=== PATIENT | male | born 1940 | race Caucasian/White ===

== ENCOUNTER 2016-12-17 11:00 | Inpatient (IN) | payer MEDICARE ==
[2016-12-17 12:38] VITALS: BMI 27.2
[2016-12-28] MEDS ORDERED: Tranexamic Acid 1,000 MG/100 ML BAG ONE ×2 (07:09→12:27)
[2016-12-28] MEDS ORDERED: CEFAZOLIN/Water 2 GM/20 ML SYRINGE ONE (07:09)
[2016-12-28] MEDS ORDERED: Vancomycin HCl 1.5 GM, Admixture Fee 1 EACH in Sodium Chloride 0.9% 250 ML 300 ML IVPB SCH (07:15)
[2016-12-28] MEDS ORDERED: Bupivacaine 0.25% HCL 30 ML VIAL ONE (08:44)
[2016-12-28] MEDS ORDERED: Phenylephrine 10 MG/NS 250 ML 250 ML ONE (08:44)
[2016-12-28] MEDS ORDERED: Bupivacaine 0.25% 10 ML VIAL EPIDURAL PRN (08:45)
[2016-12-28] MEDS ORDERED: Zolpidem Tartrate 5 MG TAB PO PRN ×2 (08:45→08:51)
[2016-12-28] MEDS ORDERED: diphenhydrAMINE 50 MG/ML VIAL IM PRN (08:45)
[2016-12-28] MEDS ORDERED: Naloxone HCl 0.4 mg/ml Vial IV PRN (08:45)
[2016-12-28] MEDS ORDERED: Promethazine HCl 25 MG/ML VIAL IM PRN ×3 (08:45→11:46)
[2016-12-28] MEDS ORDERED: Naloxone HCl 0.4 mg/ml Vial IVP PRN (08:45)
[2016-12-28] MEDS ORDERED: Ketorolac Tromethamine 30 MG/ML VIAL IVP PRN (08:45)
[2016-12-28] MEDS ORDERED: Promethazine HCl 25 MG SUPP PR PRN (08:45)
[2016-12-28] MEDS ORDERED: Eucerin (Mineral Oil/Petrolatum,White) 30 gm Jar TOP PRN (08:45)
[2016-12-28] MEDS ORDERED: Ondansetron HCl/PF 4 MG/2 ML Vial IVP PRN ×3 (08:45→11:46)
[2016-12-28] MEDS ORDERED: traMADol HCl 50 MG TAB PO PRN ×3 (08:45→08:51)
[2016-12-28] MEDS ORDERED: diphenhydrAMINE 50 MG/ML VIAL IVP PRN (08:45)
[2016-12-28] MEDS ORDERED: Fentanyl/Bupivacaine 250 ML in Premix Bag 1 BAG EPIDURAL SCH (08:45)
[2016-12-28] MEDS ORDERED: HYDROcodone/Acetaminophen 5/325 mg Tablet PO PRN (08:45)
[2016-12-28] MEDS ORDERED: Acetaminophen 325 MG TAB PO PRN (08:51)
[2016-12-28] MEDS ORDERED: Fentanyl 100 MCG/2 ML VIAL SLOW IVP PRN ×2 (08:51)
[2016-12-28] MEDS ORDERED: diphenhydrAMINE 25 MG CAP PO PRN (08:51)
[2016-12-28] MEDS ORDERED: HYDROcodone/Acetaminophen 10/325 mg Tablet PO PRN ×2 (08:51)
[2016-12-28] MEDS ORDERED: Fentanyl 100 MCG/2 ML VIAL ONE (08:52)
[2016-12-28] MEDS ORDERED: Tranexamic Acid 1,000 MG in Sodium Chloride 0.9% 100 ML IVPB SCH (09:00)
[2016-12-28] MEDS ORDERED: Non-Formulary Item 1 EACH (Multivitamin [Multivitamins] 1 CAP) PO SCH (09:00)
[2016-12-28] MEDS ORDERED: PHENYLEPHRINE-NS 100 MCG/ML 10 ML SYRINGE ONE (09:08)
[2016-12-28] MEDS ORDERED: Propofol 200 MG/20 ML VIAL ONE (09:08)
[2016-12-28] MEDS ORDERED: Glycopyrrolate 0.2 MG/ML 5 ML SYRINGE ONE (09:08)
[2016-12-28] MEDS ORDERED: Ondansetron HCl/PF 4 MG/2 ML Vial ONE (09:08)
[2016-12-28] MEDS ORDERED: SUGAMMADEX SODIUM 500 MG/5 ML VIAL ONE (11:37)
[2016-12-28] MEDS ORDERED: Ropivacaine 0.5% HCl/PF (150 MG/30 ML VIAL) ONE (11:43)
[2016-12-28] MEDS ORDERED: Promethazine HCl 25 MG/ML VIAL SLOW IVP PRN (11:46)
[2016-12-28] MEDS ORDERED: Fentanyl/Bupivacaine 250 ML EPIDURAL ONE (12:25)
--- NOTE | 2016-12-28 13:00 | OP ---
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 POSTOPERATIVE DIAGNOSIS: Failed right total hip arthroplasty. SURGEON: Evangelista Malin M.D. BLADE OPERATOR: Spike Bruce M.D. BLOOD LOSS: 400 mL. SPECIMEN: None. DRAINS: None. COMPLICATIONS: None. IMPLANTS USED: A 68 mm G7 multi-hole cup from [employer], 6.5 x 20 mm screw, 6.5 x 25 mm screw x2, dual mobility liner size I, 2 mobility femoral head, size 54 mm femoral trunnion, a standard 28 mm +6 ce ramic femoral head. The patient was taken to the operating room where general anesthesia was induce d. The patient was placed in left decubitus position. Right leg was prepped and draped in the usua l sterile fashion. I opened up a portion of his old scar. Dissection carried down to the IT band, which was quite adherent. I freed up the IT band. Most of his abductors were off and chronically s carred. I removed the scar from this area, exposed the femoral head and neck. The femoral head was dislocated. I extracted the femoral neck and extracted the femoral trunnion. Circumferentially ex posure was made of the acetabulum. The polyethylene liner was removed. The cup was removed with so me difficulty. I had to get four screws which were placed and I removed these. He had a Terri ty pe cup which had an external flanges like basically knife blades that went down to the bone which pr evented easy extraction, so a painstaking distraction was performed. This left the acetabulum with a large defect. This was a 62/64 mm cup which was removed. There was significant bone loss mediall y and posterior superiorly. I gently reamed up to a size 65 and then used an allograft femoral head to bone graft the acetabulum a 68 mm cup was impacted into place and fixed with screws. Trial line r was used, but eventually replaced with a permanent liner. Attention was turned back to the femur where I used extrusor trials and on the femoral side I used a 6 mm +6 mm 28 mm ceramic head with a s leeve. Hip appeared to be stable throughout a range of motion. Trials were removed and irrigation performed. Permanent implants were impacted into place. The hip was reduced. I replaced what abdu ctors were there, but the abductors were in very poor condition, IT band was repaired with #2 Vicryl and #2 Quill, subcutaneous closed with 0 Quill, skin was closed with 2-0 Monoderm and skin glue was applied and sterile dressings applied. There were no complications.
[2016-12-28] MEDS ORDERED: hydrALAZINE 20 MG/ML VIAL SLOW IVP PRN (14:09)
[2016-12-28] MEDS ORDERED: hydrALAZINE 25 MG TAB PO PRN (14:10)
[2016-12-28] MEDS: Aspirin 325 MG TAB PO SCH ×2 (14:20→20:23)
[2016-12-28] MEDS: Sodium Chloride 0.9% 1,000 ML IV SCH ×3 (14:20→23:32)
[2016-12-28] MEDS: Amlodipine 5 MG TAB PO SCH (14:20)
--- NOTE | 2016-12-28 14:44 | RAD ---
RIGHT HIP 2 VIEWS: Date: 12/28/16 HISTORY: Postop total hip. COMPARISON: Hip radiograph dated 11/11/16. FINDINGS: Satisfactory alignment of the right hip arthroplasty. No dislocation. Expected postoperative gas and edema. IMPRESSION: Satisfactory alignment of right hip arthroplasty. POS: [facility]
--- NOTE | 2016-12-28 15:13 | CON ---
DATE OF CONSULTATION: 12/28/2016 ATTENDING PHYSICIAN: Dr. Malin. PRIMARY CARE PHYSICIAN: Dr. Ribeiro. REASON FOR ADMISSION: Revision of a right total hip replacement. REASON FOR CONSULTATION: Aid in medical management. HISTORY OF PRESENT ILLNESS: Mr. Chilel is a pleasant 76-year-old gentleman who was admitted for rev ision of a right total hip replacement. The patient besides having some difficulty with the right h ip has no other specific complaints. He also has a history of coronary artery disease, which has be en stable. It is noted in his records that he sees Dr. Douglas on a regular basis and had a cardiac catheterization back in 06/2015. At that time, it was demonstrated that he had a 3-vessel coronary artery disease, which was well vascularized with the patent internal mammary to the LAD as well as t he patent graft to the obtuse marginal and the RCA has a stent, which was widely patent. The patien t had been on Plavix, but was taken off back in June and continues with aspirin therapy to this date. He denies having any chest pain or shortness of breath, no PND, no orthopnea. When I am seeing kaz parekh, he is postop and has no complaints. REVIEW OF SYSTEMS: With regards to the review of systems; Constitutional: There have been no fever s, no chills, no night sweats, no weight loss. HEENT: No headache or dizziness, no visual changes. Pulmonary: No hemoptysis, no cough, no wheezing. Cardiovascular: As the history of present illn ess. Gastrointestinal: He denies any nausea or vomiting. Extremities: No lower extremity edema. PAST MEDICAL HISTORY: Significant for coronary artery disease and elevated cholesterol. PAST SURGICAL HISTORY: He has had a total hip replacement in 1972, as well as a right hip revision in 1989 as well as 09/2000 he has had what appears to be a 2-vessel bypass surgery as well as a sten t placed to his RCA. FAMILY HISTORY: Unknown. SOCIAL HISTORY: He is . He is a non-smoker, nondrinker. ALLERGIES: MORPHINE. CURRENT MEDICATIONS: Include aspirin 81 mg daily, Cozaar 100 mg daily, simvastatin 40 mg daily, aml odipine 5 mg daily, multivitamin daily, selenium 200 mg daily and calcium carbonate plus vitamin D 6 00 one tablet daily. PHYSICAL EXAMINATION: GENERAL: He is alert and oriented. He appears to be in no acute distress. VITAL SIGNS: His blood pressure was 113/58, heart rate 58, respiratory rate of 18 and temperature i s 98.1. HEENT: His pupils are equal, round and reactive. Extraocular muscles are intact. His sclerae are anicteric. Throat: There is no erythema, no exudates. NECK: No adenopathy, no bruits. LUNGS: Clear. No wheezing, no rales. CARDIOVASCULAR: He has a normal S1 and S2. I did not appreciate an S3 or S4. No murmurs, no click s, no rubs. ABDOMEN: Obese. It is soft, it is nontender and nondistended. Positive for bowel sounds. No rebo und or guarding. EXTREMITIES: There is no edema. NEUROLOGIC: The exam is nonfocal. LABORATORY DATA: Lab results were done on 12/17 and these have been reviewed. ASSESSMENT AND PLAN: This is a pleasant 76-year-old gentleman who is being admitted for revision of a right total hip replacement. The patient is postop and currently clinically stable overall. His blood pressure is well controlled and he is not having any symptoms of angina. His medications had been reviewed and it seems reasonable to restart his usual home medications. His blood pressure is on the lower side. However, we will place a p.r.n. hydralazine as needed. Otherwise, we will be h appy to follow along with you.
[2016-12-28] MEDS: CEFAZOLIN/Water 2 GM/20 ML SYRINGE SLOW IVP SCH ×2 (17:44→23:24)
[2016-12-28] MEDS: Atorvastatin Calcium 20 MG TAB PO SCH (20:23)
[2016-12-29 04:30] LABS: Hematocrit 32.2 % (42.0-52.0); Mean Platelet Volume 7.7 fL (7.4-10.4); Red Blood Cell (RBC) Count 3.18 mill/uL (4.70-6.10); White Blood Cell (WBC) Count 10.6 thou/uL (4.8-10.8)
[2016-12-29] MEDS ORDERED: SELENIUM 200 MCG PO SCH (09:00)
[2016-12-29] MEDS: Calcium Carbonate + Vit D 1 TAB PO SCH (09:36)
[2016-12-29] MEDS: Aspirin 325 MG TAB PO SCH ×2 (09:36→20:27)
[2016-12-29] MEDS: Senokot S 8.6-50 MG TAB PO SCH ×2 (09:37→20:27)
[2016-12-29] MEDS: Ferrous Gluconate 324 MG TAB PO SCH ×2 (09:37→20:27)
[2016-12-29] MEDS: Amlodipine 5 MG TAB PO SCH (09:37)
[2016-12-29] MEDS: Losartan Potassium 25 MG TAB PO SCH (09:37)
[2016-12-29] MEDS: Multivitamin W/ Minerals 1 TAB PO SCH (09:37)
[2016-12-29] MEDS: Sodium Chloride 0.9% 1,000 ML IV SCH ×2 (09:40→22:43)
[2016-12-29] MEDS: HYDROcodone/Acetaminophen 5/325 mg Tablet PO PRN (09:42)
[2016-12-29] MEDS: diphenhydrAMINE 25 MG CAP PO PRN ×2 (15:04→23:08)
[2016-12-29] MEDS: Atorvastatin Calcium 20 MG TAB PO SCH (20:27)
[2016-12-30 04:47] LABS: Hematocrit 31.3 % (42.0-52.0); Mean Platelet Volume 7.4 fL (7.4-10.4); Red Blood Cell (RBC) Count 3.06 mill/uL (4.70-6.10); White Blood Cell (WBC) Count 12.6 thou/uL (4.8-10.8)
[2016-12-30] MEDS: Losartan Potassium 25 MG TAB PO SCH (08:16)
[2016-12-30] MEDS: Calcium Carbonate + Vit D 1 TAB PO SCH (08:17)
[2016-12-30] MEDS: Ferrous Gluconate 324 MG TAB PO SCH (08:17)
[2016-12-30] MEDS: Amlodipine 5 MG TAB PO SCH (08:17)
[2016-12-30] MEDS: Multivitamin W/ Minerals 1 TAB PO SCH (08:17)
[2016-12-30] MEDS: Aspirin 325 MG TAB PO SCH (08:17)
[2016-12-30] MEDS: Senokot S 8.6-50 MG TAB PO SCH (08:18)
[2016-12-30] MEDS: Sodium Chloride 0.9% 1,000 ML IV SCH (08:20)
[2016-12-30] MEDS: HYDROcodone/Acetaminophen 5/325 mg Tablet PO PRN (08:20)
[2016-12-30 13:07] VITALS: BP 137/63; TEMP 97.9
== END 2016-12-30 16:07 | disposition home or self-care (01) | DRG 468 ==
LOC: SURG A 12-28 05:41 → SJJU 12-28 12:51
PROVIDERS: ADMIT Orthopaedic Surgery; ATTEND Orthopaedic Surgery
PROC: 0SRR03A Replacement of Right Hip Joint, Femoral Surface with Ceramic Synthetic Substitute, Uncemented, Open Approach (ICD-10-PCS; principal; 2016-12-28)
PROC: 0SP909Z Removal of Liner from Right Hip Joint, Open Approach (ICD-10-PCS; 2016-12-28)
PROC: 0SUA09Z Supplement Right Hip Joint, Acetabular Surface with Liner, Open Approach (ICD-10-PCS; 2016-12-28)
PROC: 0SPR0JZ Removal of Synthetic Substitute from Right Hip Joint, Femoral Surface, Open Approach (ICD-10-PCS; 2016-12-28)
PROC: 3E0T3BZ Introduction of Anesthetic Agent into Peripheral Nerves and Plexi, Percutaneous Approach (ICD-10-PCS; 2016-12-28)
DX: T84.028A Dislocation of other internal joint prosthesis, initial encounter (principal); I25.2 Old myocardial infarction; T84.020A Dislocation of internal right hip prosthesis, initial encounter; I25.10 Atherosclerotic heart disease of native coronary artery without angina pectoris; Z95.1 Presence of aortocoronary bypass graft; Z95.5 Presence of coronary angioplasty implant and graft; E78.00 Pure hypercholesterolemia, unspecified; Z79.02 Long term (current) use of antithrombotics/antiplatelets; Z79.82 Long term (current) use of aspirin; Z88.8 Allergy status to other drugs, medicaments and biological substances
CPT/HCPCS: 36415; 85027; A4216; C1776; G8987-GO-CJ; G8988-GO-CI; J1200; J2405; J2704; J2795; J3010; J3370; J7050; S0020

== ENCOUNTER 2016-12-17 12:01 | Outpatient (CLI) | payer MEDICARE ==
[2016-12-17 14:18] LABS: #Eosinphils 0.1 thou/uL (0.0-0.7); #Lymphocytes 1.5 thou/uL (1.20-3.40); #Monocytes 0.5 thou/uL (0.11-0.59); #Neutrophils 4.1 thou/uL (1.40-6.50); %Basophils 0.8 % (0.0-1.0); %Lymphocytes 24.3 % (21.0-51.0); %Monocytes 7.9 % (0.0-10.0); Mean Platelet Volume 7.3 fL (7.4-10.4); Red Blood Cell (RBC) Count 4.02 mill/uL (4.70-6.10); White Blood Cell (WBC) Count 6.1 thou/uL (4.8-10.8)
[2016-12-17 14:22] LABS: Bilirubin Negative (Negative); Blood, Urine Negative (Negative); Glucose, Urine (Dipstick) Negative (Negative); Ketone, Urine Negative (Negative); Nitrite Negative (Negative); Protein, Urine (Dipstick) Negative (Neg-Trace)
[2016-12-17 14:24] LABS: PTT 28.2 SEC (22.9-36.1); Prothrombin Time 13.8 SEC (12.0-14.7)
[2016-12-17 14:27] LABS: Bacteria/HPF None Seen HPF (None Seen); Hyaline Casts/LPF 0-3 HYALINE CAST LPF (0-3 Hyaline); Squamous Epithelial 0-3 HPF (0-3); WBC/HPF 0-3 HPF (0-3)
[2016-12-17 14:52] LABS: Anion Gap 10 mmol/L (10-20); BUN (Urea Nitrogen) 18 mg/dL (8.4-25.7); Calc. Creatinine Clearance 0 mL/min (70-130); Carbon Dioxide 31 mmol/L (23-31); Chloride 104 mmol/L (98-107); Estimated GFR-MDRD 71
--- NOTE | 2016-12-17 15:33 | RAD ---
PA AND LATERAL VIEWS OF CHEST: Date: 12/17/16 HISTORY: Preoperative evaluation. FINDINGS: There are changes of median sternotomy. The heart size is normal. The lungs are well expanded withou t focal areas of consolidation, pneumothorax, or pleural effusions. There are mild degenerative pascal ges in the spine. IMPRESSION: No radiographic evidence of acute cardiopulmonary process. POS: [facility]
--- NOTE | 2016-12-20 16:04 | EKG ---
Test Reason : Blood Pressure : / mmHG Vent. 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
== END 2016-12-17 12:02 | disposition home or self-care (01) ==
LOC: LABBT 12:01
PROVIDERS: ATTEND Orthopaedic Surgery
DX: Z01.818 Encounter for other preprocedural examination (principal)
CPT/HCPCS: 71020; 80048; 81001; 85025; 85610; 85730; 93005; 93010

== ENCOUNTER 2016-12-22 09:44 | Outpatient (CLI) | payer MEDICARE | END 2016-12-22 09:45 | disposition home or self-care (01) | LOC: LABBT 09:44 | PROVIDERS: ATTEND Orthopaedic Surgery | DX: Z01.818 Encounter for other preprocedural examination (principal); T84.028A Dislocation of other internal joint prosthesis, initial encounter | CPT/HCPCS: 86850; 86900; 86901; 87081 ==

== ENCOUNTER 2018-03-01 09:47 | Outpatient (CLI) | payer MEDICARE ==
--- NOTE | 2018-03-01 12:23 | RAD ---
CERVICAL SPINE FOUR VIEWS: 03/01/2018 HISTORY: Cervical radiculopathy. FINDINGS: Mild degenerative change at the atlantoaxial interspace. Disk space narrowing, degenerative endplate change, and anterior osteophyte formation noted at C4-C5, C5-C6, and C6-C7. Selection imaging, neut ral imaging, and extension imaging demonstrates no significant anterolisthesis or retrolisthesis. Fr ontal imaging demonstrates bilateral facet and uncovertebral osteophyte formation at C4-C5, C5-C6, an d C6-C7. IMPRESSION: Multilevel degenerative change within the cervical spine, as detailed above. POS: [facility]
--- NOTE | 2018-03-01 13:47 | MRI ---
MRI CERVICAL SPINE: Date: 03-01-18 Comparison: None. History: Neck pain radiating into the left scapular region, cervical radiculopathy. Technique: Multiplanar, multisequence MRI images were obtained of the cervical spine without contrast . FINDINGS: The sagittal STIR imaging demonstrates no focal area of osseous marrow edema. Cervical vertebral body height and alignment appears within normal limits. No prevertebral soft tissu e abnormality. There is moderate degenerative changes at the atlantoaxial interspace. C2-3: Mild disc bulge with no central canal or neural foraminal stenosis. C3-4: Mild disc bulge with no significant central canal stenosis. Bilateral facet and uncal vertebral osteophyte formation, left greater than right. Mild bilateral neural foraminal stenosis. C4-5: There is disc space narrowing, disc desiccation and disc bulge with partial effacement of the v entral thecal sac and mild central canal stenosis. Anterior osteophyte formation noted. Bilateral facet and uncal vertebral osteophyte formation, left greater than right. Mild bilateral elicia ral foraminal stenosis, left greater than right. C5-6: Disc space narrowing and disc desiccation noted with mild disc bulge and mild central canal kiera nosis. Mild bilateral facet hypertrophy. No significant neural foraminal stenosis. C6-7: Disc space narrowing, disc desiccation, and mild disc bulge. No significant central canal steno sis. Anterior osteophyte formation is present. Mild bilateral facet and uncal vertebral osteophyte formation noted with mild bilateral neural forami nal stenosis, right greater than left. C7-T1: Mild bilateral facet hypertrophy with mild bilateral neural foraminal stenosis, left greater t escobar right. No significant central canal stenosis. There is no focal area of abnormal signal intensity within the cervical cord. IMPRESSION: 1. Multilevel degenerative change within the cervical spine as detailed above. POS: [facility]
== END 2018-03-01 09:48 | disposition home or self-care (01) ==
LOC: BICMRI 09:47
PROVIDERS: ATTEND Surgery
DX: M47.22 Other spondylosis with radiculopathy, cervical region (principal)
CPT/HCPCS: 72050; 72141

== ENCOUNTER 2020-02-21 10:17 | Inpatient (IN) | payer MEDICARE ==
[2020-02-21] MEDS ORDERED: Acetaminophen 500 MG TAB ONE (10:56)
[2020-02-21] MEDS ORDERED: cefTRIAXone\\ROCEPHIN 1 GM VIAL ONE (10:56)
--- NOTE | 2020-02-21 11:20 | RAD ---
Exam: Chest one view HISTORY:COVID positive patient. Shortness of breath. Difficulty breathing. Comparison: 09/11/2004 FINDINGS: Cardiac silhouette:Cardiomegaly and sternotomy wires are noted. Aorta: Atherosclerosis Pulmonary vessels: Normal Costophrenic angles: Scarring of the left lung base. LUNGS: Multi lobar interstitial and alveolar opacities compatible with patient's history of COVID 19 pneumonia. Pneumothorax: None Osseous abnormalities: None IMPRESSION: Multi lobar COVID pneumonia.
[2020-02-21 11:39] LABS: #Lymphocytes 0.8 thou/uL (1.20-3.40); #Monocytes 0.4 thou/uL (0.11-0.59); #Neutrophils 7.9 thou/uL (1.40-6.50); %Basophils 0.1 % (0.0-1.0); %Eosinophils 0.2 % (0.0-10.0); %Lymphocytes 8.8 % (21.0-51.0); %Monocytes 4.5 % (0.0-10.0); %Neutrophils 86.5 % (42.0-75.0); Hemoglobin 13.5 g/dL (14.0-18.0); Mean Corpuscular HGB CONC 32.8 g/dL (32.0-36.0); Mean Corpuscular Hemoglobin 33.1 pg (27.0-31.0); Mean Platelet Volume 8.6 fL (7.4-10.4); Platelet Count 101 thou/uL (130-400); Platelet Morphology Comment Appears Decreased; RBC Distribution Width 11.7 % (11.5-14.5); Red Blood Cell (RBC) Count 4.07 mill/uL (4.70-6.10); White Blood Cell (WBC) Count 9.1 thou/uL (4.8-10.8)
[2020-02-21] MEDS ORDERED: Azithromycin 500 MG VIAL ONE (11:59)
[2020-02-21 12:03] LABS: CKMB 0.5 ng/mL (0-6.6)
[2020-02-21 12:05] LABS: ALT (SGPT) 32 U/L (8-55); AST (SGOT) 45 U/L (5-34); Albumin 3.3 g/dL (3.4-4.8); Alkaline Phosphatase 87 U/L (40-110); Anion Gap 16 mmol/L (10-20); BUN (Urea Nitrogen) 23 mg/dL (8.4-25.7); Bilirubin, Total 0.8 mg/dL (0.2-1.2); Calc. Creatinine Clearance 0 mL/min (70-130); Calcium 7.9 mg/dL (7.8-10.44); Carbon Dioxide 24 mmol/L (23-31); Chloride 104 mmol/L (98-107); Globulin 3.5 g/dL (2.4-3.5); Glucose 88 mg/dL (83-110); Potassium 3.4 mmol/L (3.5-5.1); Protein, Total 6.8 g/dL (5.8-8.1); Sodium 141 mmol/L (136-145)
[2020-02-21] MEDS ORDERED: Aspirin Chewable 81 MG TAB ONE (12:17)
[2020-02-21] MEDS ORDERED: Dexamethasone 4 mg/ml Vial ONE (12:17)
[2020-02-21] MEDS ORDERED: Albuterol 200 PUFF (6.7GM INHALER) ONE (12:23)
[2020-02-21] MEDS ORDERED: Iopamidol-370 76% 500 ML 1 ML ONE (13:11)
--- NOTE | 2020-02-21 13:22 | CT ---
Exam: CT angiogram of the chest HISTORY: COVID positive patient. Increasing shortness of breath and difficulty breathing. COMPARISON: None TECHNIQUE: CT angiogram of the chest is performed in the axial plane. Three-dimensional reformatted i mages are submitted for interpretation FINDINGS: Mediastinum: No mass, lymphadenopathy or hematoma. HEART: Normal size. No significant pericardial fluid. There are coronary artery calcifications. Aorta: No aneurysm or dissection Upper solid abdominal viscera: No acute abnormality. There is evidence of cholelithiasis. Trachea and central bronchi: Patent Pleural spaces: No effusion Lung parenchyma: Peripheral groundglass opacities, in keeping with patient's COVID positive status. Pneumothorax: None Osseous structures: No lytic or blastic lesions Pulmonary arteries: Adequate contrast opacification pulmonary arterial system to the level of segment al arteries. No filling defect to suggest pulmonary embolism IMPRESSION: 1. No evidence of pulmonary artery embolism to the level of the segmental arteries. 2. Multi lobar groundglass opacities, peripheral distribution. There is evidence for multi lobar COVI D pneumonia.
[2020-02-21 14:50] LABS: Lactic Acid 1.4 mmol/L (0.5-2.2)
[2020-02-21 15:49] LABS: Troponin I 0.044 ng/mL (< 0.028)
[2020-02-21 16:56] LABS: Bilirubin Negative (Negative); Blood, Urine Negative (Negative); Clarity Clear (Clear); Glucose, Urine (Dipstick) Normal (Negative); Ketone, Urine Negative (Negative); Leukocyte Negative Leu/uL (Negative); Nitrite Negative (Negative); Protein, Urine (Dipstick) Negative (Neg-Trace); Specific Gravity, Urine 1.027 (1.002-1.036); Urobilinogen Normal mg/dL (Less than 2)
--- NOTE | 2020-02-21 17:57 | HP ---
CHIEF COMPLAINT: Shortness of breath. HISTORY OF PRESENT ILLNESS: The patient is a 80-year-old male with past medical history of coronary artery disease, status post CABG; hyperlipidemia; hypertension; and chronic kidney disease; who presented to the hospital with complaints of shortness of breath. The patient was diagnosed with COVID-19 fourteen days ago. He stated that shortness of breath has been worsening over the past few days and associated with cough and chest pain whenever he takes a deep breath. The pain is sharp and localized to the lower chest. The patient denies nausea, vomiting, diarrhea, palpitations, or dizziness. REVIEW OF SYSTEMS: Negative except as noted in HPI. PAST MEDICAL HISTORY: As noted above. PAST SURGICAL HISTORY: Include CABG and hip surgery. SOCIAL HISTORY: The patient denies alcohol use, illicit drug use, or smoking. FAMILY HISTORY: Noncontributory for his current presentation. PHYSICAL EXAMINATION: GENERAL: The patient is alert and oriented x3. HEENT: Head is normocephalic and atraumatic. Extraocular muscles are intact. NECK: Supple. CHEST: Auscultation reveals crackles bilaterally. CARDIOVASCULAR: Revealed normal S1 and S2. Regular rate and rhythm. No murmurs, rubs, or gallops. ABDOMEN: Soft, nontender, nondistended. NEUROLOGIC: Nonfocal. PERTINENT DATA: The patient was found to be saturating well on room air in the ER while at rest and his oxygen saturations dropped to 89% with ambulation. Initial troponin was slightly elevated at 0.03 and repeat troponin was 0.04. Creatinine level was above baseline at 1.29. BNP was slightly elevated at 153. Chest x-ray revealed multilobar infiltrates consistent with COVID pneumonia. ASSESSMENT: 1. COVID-19 pneumonia. 2. Atypical chest pain. 3. Troponin elevation. 4. Hypertension. 5. Hyperlipidemia. 6. Chronic kidney disease. 7. Coronary artery disease. PLAN: The patient will be placed in observation. We will trend the troponins. He does not require oxygen at this time. No COVID-19 specific treatment will be administered as the patient is saturating well on room air. Enoxaparin for DVT prophylaxis. Continue aspirin, atorvastatin, and losartan. His chest pain is atypical and troponin elevation is likely due to chronic kidney disease in addition to COVID-19 infection. We will continue to monitor the patient's condition over the next 24 hours. Job ID: [id number]
[2020-02-21 18:20] LABS: Troponin I 0.038 ng/mL (< 0.028)
[2020-02-21] MEDS: Atorvastatin Calcium 40 MG TAB PO SCH (21:29)
[2020-02-21 21:32] VITALS: BMI 28.9
[2020-02-21] MEDS: Albuterol 200 PUFF (6.7GM INHALER) INH SCH (22:16)
[2020-02-22] MEDS: Albuterol 200 PUFF (6.7GM INHALER) INH SCH ×6 (02:27→22:30)
[2020-02-22 05:42] LABS: #Monocytes 0.5 thou/uL (0.11-0.59); #Neutrophils 8.1 thou/uL (1.40-6.50); %Basophils 0.1 % (0.0-1.0); %Eosinophils 0.2 % (0.0-10.0); %Lymphocytes 10.4 % (21.0-51.0); %Monocytes 5.6 % (0.0-10.0); %Neutrophils 83.8 % (42.0-75.0); Hemoglobin 12.2 g/dL (14.0-18.0); Mean Corpuscular HGB CONC 33.9 g/dL (32.0-36.0); Mean Corpuscular Hemoglobin 34.5 pg (27.0-31.0); Mean Platelet Volume 8.7 fL (7.4-10.4); Platelet Count 95 thou/uL (130-400); RBC Distribution Width 11.6 % (11.5-14.5); Red Blood Cell (RBC) Count 3.55 mill/uL (4.70-6.10); White Blood Cell (WBC) Count 9.7 thou/uL (4.8-10.8)
[2020-02-22 06:03] LABS: Anion Gap 13 mmol/L (10-20); BUN (Urea Nitrogen) 21 mg/dL (8.4-25.7); Calc. Creatinine Clearance 88 mL/min (70-130); Calcium 7.4 mg/dL (7.8-10.44); Carbon Dioxide 19 mmol/L (23-31); Chloride 110 mmol/L (98-107); Glucose 147 mg/dL (83-110); Potassium 3.9 mmol/L (3.5-5.1); Sodium 138 mmol/L (136-145)
[2020-02-22] MEDS ORDERED: Amlodipine 5 MG TAB PO SCH (09:00)
[2020-02-22] MEDS: Enoxaparin Sodium 40 MG/0.4 ML SYRINGE SC SCH (09:19)
[2020-02-22] MEDS: Losartan 25 MG TAB PO SCH (09:20)
[2020-02-22] MEDS: Aspirin 81 mg Enteric Coated Tablet PO SCH (09:20)
[2020-02-22] MEDS: hydrALAZINE 20 MG/ML VIAL SLOW IVP PRN (13:39)
--- NOTE | 2020-02-22 14:56 | PDOC.HOSPP ---
- Subjective Encounter Date: 02/22/20 Encounter Time: 11:50 Subjective: Patient seen and examined. No acute complaints at this time. he has some cough and sating 96%. His blood pressure is little elevated this morning. - Objective Vital Signs & Weight: Vital Signs (12 hours) Temp Pulse Resp BP BP Pulse Ox 02/22/20 12:10 98.5 F 73 18 157/74 H 96 02/22/20 10:38 149/69 H 02/22/20 09:20 98.4 F 63 18 162/79 H 96 02/22/20 03:32 97.7 F 61 18 136/66 97 Weight Weight 201 lb 6.4 oz I&O: 02/21/20 02/22/20 02/23/20 06:59 06:59 06:59 Intake Total 480 Balance 480 Result Diagrams: 02/22/20 04:51 02/22/20 04:51 Hospitalist ROS - Medication Medications: Active Medications Generic Name Dose Route Start Last Admin Trade Name Freq PRN Reason Stop Dose Admin Albuterol Sulfate 2 puff 02/21/20 22:30 02/22/20 13:39 Albuterol 200 Puff (6.7gm Inhaler) INH 2 puff [id number] IVA Administration Aspirin 81 mg 02/22/20 09:00 02/22/20 09:20 Aspirin 81 Mg Enteric Coated Tablet PO 81 mg DAILY IVA Administration Atorvastatin Calcium 40 mg 02/21/20 21:00 02/21/20 21:29 Atorvastatin Calcium 40 Mg Tab PO 40 mg HS IVA Administration Enoxaparin Sodium 40 mg 02/22/20 09:00 02/22/20 09:19 Enoxaparin Sodium 40 Mg/0.4 Ml Syringe SC 40 mg 0900 IVA Administration Hydralazine HCl 10 mg 02/22/20 10:02 02/22/20 13:39 Hydralazine 20 Mg/Ml Vial SLOW IVP 10 mg Q4H PRN Administration SBP >150 Losartan Potassium 100 mg 02/22/20 09:00 02/22/20 09:20 Losartan 25 Mg Tab PO 100 mg DAILY IVA Administration - Exam General Appearance: NAD, awake alert Eye: PERRL ENT: normocephalic atraumatic Neck: supple Heart: RRR Respiratory: CTAB, normal chest expansion Gastrointestinal: soft, normal bowel sounds Neurological: cranial nerve grossly intact, no focal deficits Psychiatric: A&O x 3 Hosp A/P - Plan COVID-19 pneumonia Probable noncardiac chest pain likely secondary to pneumonia -CT chest showing negative for pulmonary artery embolism -Multilobar groundglass opacity and peripheral distribution -He is on vitamin D3 Levaquin as well as Lovenox Coronary artery disease -Stable and on -Aspirin and Lipitor Hypertension -Increase the dose of Norvasc and continue with the Cozaar home regimen -Hydralazine as needed Chronic kidney disease plan for discharge tomorrow.
[2020-02-22] MEDS: Acetaminophen 325 MG TAB PO PRN (17:44)
[2020-02-22] MEDS: Atorvastatin Calcium 40 MG TAB PO SCH (20:02)
[2020-02-22] MEDS: Amlodipine 5 MG TAB PO SCH (20:02)
--- NOTE | 2020-02-23 00:17 | PDOC.EVN ---
Event Note - Event Note Event Note: Notified by RN, patient with temp spike of 103.2, UA negative, blood cultures pending and CT chest imaging showed changes consistent with COVID pneumonia. Temp has been normal most of the day. Will continue Tylenol. If fever persists, consider adding IV antibiotics Will obtain repeat BMP and lactic acid.
[2020-02-23] MEDS: Acetaminophen 325 MG TAB PO PRN ×4 (00:21→20:44)
[2020-02-23 01:10] LABS: #Lymphocytes 1.1 thou/uL (1.20-3.40); #Monocytes 0.4 thou/uL (0.11-0.59); #Neutrophils 14.2 thou/uL (1.40-6.50); %Basophils 0.1 % (0.0-1.0); %Eosinophils 0.2 % (0.0-10.0); %Monocytes 2.7 % (0.0-10.0); Mean Corpuscular HGB CONC 34.3 g/dL (32.0-36.0); Mean Corpuscular Hemoglobin 34.2 pg (27.0-31.0); Mean Corpuscular Volume 99.8 fL (78.0-98.0); Mean Platelet Volume 8.7 fL (7.4-10.4); Platelet Count 112 thou/uL (130-400); RBC Distribution Width 11.6 % (11.5-14.5); Red Blood Cell (RBC) Count 3.81 mill/uL (4.70-6.10); White Blood Cell (WBC) Count 15.7 thou/uL (4.8-10.8)
[2020-02-23 01:27] LABS: Lactic Acid 1.2 mmol/L (0.5-2.2)
[2020-02-23 01:31] LABS: Anion Gap 14 mmol/L (10-20); BUN (Urea Nitrogen) 25 mg/dL (8.4-25.7); CRP (Inflammatory) 9.67 mg/dL (= or < 0.5); Calc. Creatinine Clearance 82 mL/min (70-130); Calcium 7.7 mg/dL (7.8-10.44); Carbon Dioxide 22 mmol/L (23-31); Chloride 107 mmol/L (98-107); Glucose 106 mg/dL (83-110); Potassium 3.6 mmol/L (3.5-5.1); Sodium 139 mmol/L (136-145)
[2020-02-23] MEDS: Albuterol 200 PUFF (6.7GM INHALER) INH SCH ×6 (03:40→22:36)
[2020-02-23] MEDS: Enoxaparin Sodium 40 MG/0.4 ML SYRINGE SC SCH (09:02)
[2020-02-23] MEDS: Amlodipine 5 MG TAB PO SCH ×2 (09:02→20:45)
[2020-02-23] MEDS: Aspirin 81 mg Enteric Coated Tablet PO SCH (09:02)
[2020-02-23] MEDS: Losartan 25 MG TAB PO SCH (09:03)
[2020-02-23] MEDS ORDERED: Bisacodyl 10 MG SUPP PR PRN (09:42)
[2020-02-23] MEDS: cefTRIAXone\\ROCEPHIN 1 GM in Sodium Chloride 0.9% 100 ML IVPB SCH (10:25)
--- NOTE | 2020-02-23 11:57 | PDOC.HOSPP ---
- Subjective Encounter Date: 02/23/20 Encounter Time: 10:35 Subjective: Patient seen this morning he appears well he did had temp overnight this morning he is afebrile. sat 94% in room air. Plan to follow-up with repeat culture today given that there is overnight temperature. - Objective Vital Signs & Weight: Vital Signs (12 hours) Temp Pulse Resp BP Pulse Ox 02/23/20 09:09 98.9 F 72 19 150/70 H 95 02/23/20 03:16 99.1 F 95 18 141/67 H 94 L 02/23/20 01:20 100.0 F H 02/23/20 00:00 103.2 F H 98 20 149/71 H 94 L Weight Weight 201 lb 6.4 oz I&O: 02/22/20 02/23/20 02/24/20 06:59 06:59 06:59 Intake Total 480 1260 Output Total 1435 Balance 480 -175 Result Diagrams: 02/23/20 01:00 02/23/20 01:00 Hospitalist ROS - Medication Medications: Active Medications Generic Name Dose Route Start Last Admin Trade Name Freq PRN Reason Stop Dose Admin Acetaminophen 650 mg 02/21/20 17:05 02/23/20 09:09 Acetaminophen 325 Mg Tab PO 650 mg Q4H PRN Administration Headache/Fever/Mild Pain (1-3) Albuterol Sulfate 2 puff 02/21/20 22:30 02/23/20 09:03 Albuterol 200 Puff (6.7gm Inhaler) INH 2 puff [id number] IVA Administration Amlodipine Besylate 5 mg 02/22/20 21:00 02/23/20 09:02 Amlodipine 5 Mg Tab PO 5 mg BID IVA Administration Aspirin 81 mg 02/22/20 09:00 02/23/20 09:02 Aspirin 81 Mg Enteric Coated Tablet PO 81 mg DAILY IVA Administration Atorvastatin Calcium 40 mg 02/21/20 21:00 02/22/20 20:02 Atorvastatin Calcium 40 Mg Tab PO 40 mg HS IVA Administration Bisacodyl 10 mg 02/23/20 09:42 02/23/20 10:24 Bisacodyl 10 Mg Supp MS 10 mg Q8H PRN Administration Constipation Enoxaparin Sodium 40 mg 02/22/20 09:00 02/23/20 09:02 Enoxaparin Sodium 40 Mg/0.4 Ml Syringe SC 40 mg 0900 IVA Administration Hydralazine HCl 10 mg 02/22/20 10:02 02/22/20 13:39 Hydralazine 20 Mg/Ml Vial SLOW IVP 10 mg Q4H PRN Administration SBP >150 Ceftriaxone Sodium 1 gm/ 100 mls @ 200 mls/hr 02/23/20 10:00 02/23/20 10:25 Sodium Chloride IVPB 100 mls Q24HR IVA Administration Losartan Potassium 100 mg 02/22/20 09:00 02/23/20 09:03 Losartan 25 Mg Tab PO 100 mg DAILY IVA Administration - Exam General Appearance: NAD, awake alert Eye: PERRL ENT: normocephalic atraumatic Neck: supple Gastrointestinal: soft, normal bowel sounds Neurological: cranial nerve grossly intact, no focal deficits Psychiatric: normal affect, normal behavior, A&O x 3 Hosp A/P - Plan COVID-19 pneumonia Probable noncardiac chest pain likely secondary to pneumonia -CT chest showing negative for pulmonary artery embolism -Multilobar groundglass opacity and peripheral distribution -He is on vitamin D3 Levaquin as well as Lovenox DC Levaquin Mild hemoptysis -Probably due to cough will monitor closely. His hemoglobin is 13.0 and he is on baby aspirin. Coronary artery disease -Stable and on -Aspirin and Lipitor Hypertension -Increase the dose of Norvasc and continue with the [facility] home regimen -Hydralazine as needed Chronic kidney disease Fever and leukocytosis on -Repeating the blood culture and started him on ceftriaxone and Zithromax. Thrombocytopenia -Not severe enough to stop the anticoagulant -continue with the Lovenox
[2020-02-23] MEDS: hydrALAZINE 20 MG/ML VIAL SLOW IVP PRN (14:37)
[2020-02-23] MEDS: Atorvastatin Calcium 40 MG TAB PO SCH (20:44)
[2020-02-23] MEDS: Senokot S 8.6-50 MG TAB PO SCH (20:44)
[2020-02-24] MEDS: Albuterol 200 PUFF (6.7GM INHALER) INH SCH ×6 (02:38→22:08)
[2020-02-24] MEDS: Acetaminophen 325 MG TAB PO PRN ×5 (02:44→22:13)
[2020-02-24 05:46] LABS: Band 3 % (5-11); Hemoglobin 12.5 g/dL (14.0-18.0); Lymphocytes 8 % (21-51); MDiff Complete? YES; Mean Corpuscular HGB CONC 33.3 g/dL (32.0-36.0); Mean Corpuscular Hemoglobin 33.6 pg (27.0-31.0); Mean Platelet Volume 8.7 fL (7.4-10.4); Monocytes 8 % (0-10); Neutrophil 78 % (42-75); Platelet Count 120 thou/uL (130-400); Platelet Morphology Comment Appears Adequate; RBC Distribution Width 11.7 % (11.5-14.5); RBC Morphology Normal; Reactive Lymphocytes 3 % (0-10); Red Blood Cell (RBC) Count 3.72 mill/uL (4.70-6.10)
--- NOTE | 2020-02-24 08:02 | RAD ---
Chest AP view INDICATION: History of fever and Covid pneumonia COMPARISON: February 21, 2020 FINDINGS: Lungs: There is improvement in the right perihilar airspace disease; however, some interstitial and groundglass opacities remain within this region. Patchy left perihilar opacities persist. Cardiac silhouette: Post-CABG changes stable. Mild cardiomegaly is stable. Pulmonary vasculature: Normal Pleural spaces: No pleural effusion or pneumothorax is demonstrated. Upper abdomen: No abnormality seen. Osseous structures: No acute osseous abnormality. Additional findings: None. IMPRESSION: Improving bilateral pneumonia
[2020-02-24] MEDS: Aspirin 81 mg Enteric Coated Tablet PO SCH (08:52)
[2020-02-24] MEDS: Amlodipine 5 MG TAB PO SCH ×2 (08:52→20:33)
[2020-02-24] MEDS: Losartan 25 MG TAB PO SCH (08:53)
[2020-02-24] MEDS: Enoxaparin Sodium 40 MG/0.4 ML SYRINGE SC SCH (08:53)
[2020-02-24] MEDS: Azithromycin 250 MG TAB PO SCH (08:53)
[2020-02-24] MEDS: Senokot S 8.6-50 MG TAB PO SCH ×2 (08:54→20:46)
[2020-02-24] MEDS: cefTRIAXone\\ROCEPHIN 1 GM in Sodium Chloride 0.9% 100 ML IVPB SCH (10:42)
--- NOTE | 2020-02-24 12:46 | PDOC.HOSPP ---
- Subjective Encounter Date: 02/24/20 Encounter Time: 11:15 Subjective: Patient has ongoing fever. Blood cultures negative so far. His sats were done without oxygen and currently with a 2 L oxygen it is improved to 97%. - Objective Vital Signs & Weight: Vital Signs (12 hours) Temp Pulse Resp BP Pulse Ox 02/24/20 02:42 100.5 F H 83 24 H 144/67 H 97 Weight Weight 201 lb 6.4 oz I&O: 02/23/20 02/24/20 02/25/20 06:59 06:59 06:59 Intake Total 1260 300 Output Total 1435 575 Balance -175 -775 Result Diagrams: 02/24/20 04:47 02/23/20 01:00 Hospitalist ROS - Medication Medications: Active Medications Generic Name Dose Route Start Last Admin Trade Name Freq PRN Reason Stop Dose Admin Acetaminophen 650 mg 02/21/20 17:05 02/24/20 08:54 Acetaminophen 325 Mg Tab PO 650 mg Q4H PRN Administration Headache/Fever/Mild Pain (1-3) Albuterol Sulfate 2 puff 02/21/20 22:30 02/24/20 10:42 Albuterol 200 Puff (6.7gm Inhaler) INH 2 puff [id number] IVA Administration Amlodipine Besylate 5 mg 02/22/20 21:00 02/24/20 08:52 Amlodipine 5 Mg Tab PO 5 mg BID IVA Administration Aspirin 81 mg 02/22/20 09:00 02/24/20 08:52 Aspirin 81 Mg Enteric Coated Tablet PO 81 mg DAILY IVA Administration Atorvastatin Calcium 40 mg 02/21/20 21:00 02/23/20 20:44 Atorvastatin Calcium 40 Mg Tab PO 40 mg HS IVA Administration Azithromycin 500 mg 02/24/20 09:00 02/24/20 08:53 Azithromycin 250 Mg Tab PO 02/27/20 09:01 500 mg DAILY IVA Administration Bisacodyl 10 mg 02/23/20 09:42 02/23/20 10:24 Bisacodyl 10 Mg Supp MS 10 mg Q8H PRN Administration Constipation Enoxaparin Sodium 40 mg 02/22/20 09:00 02/24/20 08:53 Enoxaparin Sodium 40 Mg/0.4 Ml Syringe SC 40 mg 0900 IVA Administration Hydralazine HCl 10 mg 02/22/20 10:02 02/23/20 14:37 Hydralazine 20 Mg/Ml Vial SLOW IVP 10 mg Q4H PRN Administration SBP >150 Ceftriaxone Sodium 1 gm/ 100 mls @ 200 mls/hr 02/23/20 10:00 02/24/20 10:42 Sodium Chloride IVPB 100 mls Q24HR IVA Administration Losartan Potassium 100 mg 02/22/20 09:00 02/24/20 08:53 Losartan 25 Mg Tab PO 100 mg DAILY IVA Administration Senna/Docusate Sodium 2 tab 02/23/20 21:00 02/24/20 08:54 Senokot S 8.6-50 Mg Tab PO Not Given BID IVA Sodium Chloride 10 ml 02/23/20 21:00 02/24/20 08:54 Flush - Normal Saline 10 Ml Syringe IVF 10 ml Q12HR IVA Administration - Exam General Appearance: awake alert, ill appearing Eye: PERRL ENT: normocephalic atraumatic Neck: supple, no thyromegaly, no lymphadenopathy Heart: RRR, no rubs Respiratory: CTAB, normal chest expansion Gastrointestinal: soft, normal bowel sounds Neurological: cranial nerve grossly intact, no focal deficits Psychiatric: normal affect, A&O x 3 Hosp A/P - Plan COVID-19 pneumonia, diagnosed 14 days ago, so he passed will stage for remdesivir. His sats were good initially in the room air -Since it is over 14 days ago, she would not benefit with the Decadron -Continue with vitamin C and zinc Probable noncardiac chest pain likely secondary to pneumonia -CT chest showing negative for pulmonary artery embolism -Multilobar groundglass opacity and peripheral distribution -He is on vitamin D3 Levaquin as well as Lovenox DC Levaquin Mild hemoptysis -Probably due to cough will monitor closely. His hemoglobin is 13.0 and he is on baby aspirin. Coronary artery disease -Stable and on -Aspirin and Lipitor Hypertension -Increase the dose of Norvasc and continue with the Cozaar home regimen -Hydralazine as needed Chronic kidney disease Thrombocytopenia -Not severe enough to stop the anticoagulant -continue with the Lovenox. Persistent fever and leukocytosis -Cultures negative so far -He is on ceftriaxone and Zithromax. -Could be just inflammatory process. As chest x-ray shows improving infiltrate and urine analysis of 24th is negative for any infection. -CT chest done on 24th negative for pulmonary embolism. -Placed ID consult.
[2020-02-24] MEDS ORDERED: Dexamethasone 4 mg/ml Vial SLOW IVP SCH (18:45)
--- NOTE | 2020-02-24 19:57 | CON ---
DATE OF CONSULTATION: 02/24/2020 REASON FOR CONSULTATION: Fever. HISTORY OF PRESENT ILLNESS: A 80-year-old, history of bronchitis, coronary artery disease, prior SD, hyperlipidemia, hypertension, and CKD stage 2 to 3, who developed mild nasal symptoms about 14 days before admission, tested positive for SARS-CoV-2 done in the outpatient setting, but remained in the outpatient setting until recently when he developed fever, worsening chest pain, and dyspnea, associated with cough. He had some hemoptysis and epistaxis as well. So, he ended up admitted. On arrival, his BP was 140/62, heart rate 120, temperature 102.8, and he was saturating 96 on room air. He desaturated later on and required oxygen supplementation, and he has been given broad-spectrum antimicrobial coverage for CAP. He is right now still having temperature elevation intermittently, mild headache, still with coughing spells and some blood-tinged sputum, not purulent. No chest pain. Anorexia still prominent. Some anosmia. No abdominal pain or diarrhea. Voiding without difficulty. No joint symptoms or neurological issues. MEDICAL HISTORY: Coronary artery disease, obesity, hyperlipidemia, hypertension, CKD. He has had bypass graft surgery in the past. SOCIAL HISTORY: Never smoker. Retired. Lives in [place]. No alcoholic beverage use. FAMILY HISTORY: COVID-19 in his , but the did not have much symptoms. MEDICATION LIST: 1. Proventil. 2. Norvasc. 3. Vitamin C. 4. Aspirin. 5. Enoxaparin. 6. Azithromycin. 7. Ceftriaxone. 8. Zinc sulfate. PHYSICAL EXAMINATION: VITAL SIGNS: He has had temperature elevation up to 103 and 102 throughout the admission over the past few days. Saturations dropped to 89 and now he is up to 94 95 with O2 supplementation 2 L nasal cannula. GENERAL: He appears apprehensive a bit because of the persistence of symptoms after two weeks of illness. SKIN: Normal. Peripheral IV access. No Tapia catheter. No lymphadenopathy. HEENT: Ocular movements conjugate. Oral cavity with still quite a few teeth in place in fairly decent shape. Oral mucosa normal. NECK: Supple. LUNGS: With very faint inspiratory crackles at the bases. No wheezing. HEART: S1 and S2, regular rate. No S3 or S4. ABDOMEN: Soft. Not distended or tender. No ascites. No bladder distention. No organomegaly or tenderness. MUSCULOSKELETAL: No back tenderness. No joint inflammatory activity. Pulses 1+ in dorsalis pedis. Plantar responses flexor. Moves all extremities equally. NEUROLOGIC: Awake, alert, oriented. Follows commands. Speech normal. LABORATORY DATA: White cell count went up to 16,000, hemoglobin 12.5, platelets 120,000. Lymphocytopenia is noted. Ferritin 839. CRP 9.67. IMAGING: CT angio on admission, no pulmonary embolism noted. Ground-glass opacities noted. ASSESSMENT: Coronary artery disease, hypertension, and this is beyond 14 days of COVID-19. He is in the overtly inflammatory phase of illness. He would not benefit from any antiviral treatment, but he needs antiinflammatory with Decadron, which will be started at usual dose. Monitor markers every other day and continue antimicrobials until this is more clarified in terms of clinical course. I do not expect him to deteriorate with Decadron initiation, but one never knows with this disease. Job ID: [id number]
[2020-02-24] MEDS: Atorvastatin Calcium 40 MG TAB PO SCH (20:33)
[2020-02-25] MEDS: Albuterol 200 PUFF (6.7GM INHALER) INH SCH ×6 (02:30→22:30)
[2020-02-25 05:51] LABS: #Lymphocytes 0.9 thou/uL (1.20-3.40); #Monocytes 0.3 thou/uL (0.11-0.59); #Neutrophils 14.1 thou/uL (1.40-6.50); %Basophils 0.1 % (0.0-1.0); %Eosinophils 0.2 % (0.0-10.0); %Lymphocytes 5.6 % (21.0-51.0); %Monocytes 1.6 % (0.0-10.0); %Neutrophils 92.5 % (42.0-75.0); Hemoglobin 12.8 g/dL (14.0-18.0); Mean Corpuscular Hemoglobin 33.3 pg (27.0-31.0); Mean Platelet Volume 8.4 fL (7.4-10.4); Platelet Count 118 thou/uL (130-400); RBC Distribution Width 11.5 % (11.5-14.5); Red Blood Cell (RBC) Count 3.83 mill/uL (4.70-6.10); White Blood Cell (WBC) Count 15.2 thou/uL (4.8-10.8)
[2020-02-25] MEDS: Ascorbic Acid 500 mg Chewable Tablet PO SCH (08:41)
[2020-02-25] MEDS: Amlodipine 5 MG TAB PO SCH ×2 (08:41→19:54)
[2020-02-25] MEDS: Cholecalciferol 1,000 UNITS (25 MCG) TAB PO SCH (08:42)
[2020-02-25] MEDS: Azithromycin 250 MG TAB PO SCH (08:42)
[2020-02-25] MEDS: Aspirin 81 mg Enteric Coated Tablet PO SCH (08:42)
[2020-02-25] MEDS: Losartan 25 MG TAB PO SCH (08:43)
[2020-02-25] MEDS: Dexamethasone 4 mg/ml Vial SLOW IVP SCH (08:43)
[2020-02-25] MEDS: Enoxaparin Sodium 40 MG/0.4 ML SYRINGE SC SCH (08:43)
[2020-02-25] MEDS: Zinc Sulfate 220 MG CAP PO SCH (08:44)
[2020-02-25] MEDS: Senokot S 8.6-50 MG TAB PO SCH ×2 (08:44→19:55)
[2020-02-25] MEDS: cefTRIAXone\\ROCEPHIN 1 GM in Sodium Chloride 0.9% 100 ML IVPB SCH (08:48)
--- NOTE | 2020-02-25 13:58 | PDOC.HOSPP ---
- Subjective Encounter Date: 02/25/20 Encounter Time: 10:30 Subjective: Tucker trying to have some meals. He appears well. He did not had any temperature for the last 18 to 20 hours. Started back on Decadron. he is satting 96% in the room air.. Cultures were negative so far. - Objective Vital Signs & Weight: Vital Signs (12 hours) Temp Pulse Resp BP BP Pulse Ox 02/25/20 12:00 98.9 F 97 19 129/66 96 02/25/20 08:41 98.1 F 82 19 157/70 H 95 02/25/20 03:41 98.1 F 76 25 H 143/65 H 92 L Weight Weight 201 lb 6.4 oz I&O: 02/24/20 02/25/20 02/26/20 06:59 06:59 06:59 Intake Total 300 960 Output Total 575 1125 Balance -275 -939 Result Diagrams: 02/25/20 05:25 02/23/20 01:00 Hospitalist ROS - Medication Medications: Active Medications Generic Name Dose Route Start Last Admin Trade Name Freq PRN Reason Stop Dose Admin Acetaminophen 650 mg 02/21/20 17:05 02/24/20 22:13 Acetaminophen 325 Mg Tab PO 650 mg Q4H PRN Administration Headache/Fever/Mild Pain (1-3) Albuterol Sulfate 2 puff 02/21/20 22:30 02/25/20 10:30 Albuterol 200 Puff (6.7gm Inhaler) INH 2 puff [id number] IVA Administration Amlodipine Besylate 5 mg 02/22/20 21:00 02/25/20 08:41 Amlodipine 5 Mg Tab PO 5 mg BID IVA Administration Ascorbic Acid 1,000 mg 02/25/20 09:00 02/25/20 08:41 Ascorbic Acid 500 Mg Chewable Tablet PO 1,000 mg DAILY IVA Administration Aspirin 81 mg 02/22/20 09:00 02/25/20 08:42 Aspirin 81 Mg Enteric Coated Tablet PO 81 mg DAILY IVA Administration Atorvastatin Calcium 40 mg 02/21/20 21:00 02/24/20 20:33 Atorvastatin Calcium 40 Mg Tab PO 40 mg HS IVA Administration Azithromycin 500 mg 02/24/20 09:00 02/25/20 08:42 Azithromycin 250 Mg Tab PO 02/27/20 09:01 500 mg DAILY IVA Administration Bisacodyl 10 mg 02/23/20 09:42 02/23/20 10:24 Bisacodyl 10 Mg Supp SD 10 mg Q8H PRN Administration Constipation Cholecalciferol 2,000 units 02/25/20 09:00 02/25/20 08:42 Cholecalciferol 1,000 Units (25 Mcg) Tab PO 2,000 units DAILY IVA Administration Dexamethasone 6 mg 02/25/20 09:00 02/25/20 08:43 Dexamethasone 4 Mg/Ml Vial SLOW IVP 6 mg DAILY IVA Administration Enoxaparin Sodium 40 mg 02/22/20 09:00 02/25/20 08:43 Enoxaparin Sodium 40 Mg/0.4 Ml Syringe SC 40 mg 0900 IVA Administration Hydralazine HCl 10 mg 02/22/20 10:02 02/23/20 14:37 Hydralazine 20 Mg/Ml Vial SLOW IVP 10 mg Q4H PRN Administration SBP >150 Ceftriaxone Sodium 1 gm/ 100 mls @ 200 mls/hr 02/23/20 10:00 02/25/20 08:48 Sodium Chloride IVPB 100 mls Q24HR IVA Administration Losartan Potassium 100 mg 02/22/20 09:00 02/25/20 08:43 Losartan 25 Mg Tab PO 100 mg DAILY IVA Administration Senna/Docusate Sodium 2 tab 02/23/20 21:00 02/25/20 08:44 Senokot S 8.6-50 Mg Tab PO 2 tab BID IVA Administration Sodium Chloride 10 ml 02/23/20 21:00 02/25/20 08:44 Flush - Normal Saline 10 Ml Syringe IVF 10 ml Q12HR IVA Administration Zinc Sulfate 220 mg 02/25/20 09:00 02/25/20 08:44 Zinc Sulfate 220 Mg Cap PO 220 mg DAILY IVA Administration - Exam General Appearance: NAD, awake alert Eye: PERRL ENT: normocephalic atraumatic Neck: supple Heart: RRR, normal peripheral pulses Respiratory: CTAB, normal chest expansion Gastrointestinal: soft, normal bowel sounds Neurological: cranial nerve grossly intact, no focal deficits Musculoskeletal: generalized weakness Psychiatric: A&O x 3 Hosp A/P - Plan COVID-19 pneumonia, diagnosed 14 days ago, so he passed will stage for remdesivir. His sats were good initially in the room air -Since it is over 14 days ago, she would not benefit with the Decadron -Continue with vitamin C and zinc Probable noncardiac chest pain likely secondary to pneumonia -CT chest showing negative for pulmonary artery embolism -Multilobar groundglass opacity and peripheral distribution -He is on vitamin D3 Levaquin as well as Lovenox DC Levaquin Abnormal troponin due to type II metabolic mismatch demand ischemia. Mild hemoptysis -Probably due to cough will monitor closely. His hemoglobin is 13.0 and he is on baby aspirin. Coronary artery disease -Stable and on -Aspirin and Lipitor Hypertension -Increase the dose of Norvasc and continue with the Cozaar home regimen -Hydralazine as needed Chronic kidney disease Thrombocytopenia -Not severe enough to stop the anticoagulant -continue with the Lovenox. Persistent fever and leukocytosis -Cultures negative so far -He is on ceftriaxone and Zithromax. -Could be just inflammatory process. As chest x-ray shows improving infiltrate and urine analysis of is negative for any infection. -CT chest done on negative for pulmonary embolism. -Placed ID consult. Started back on Decadron. He is afebrile for the last 18 hours or so. His white count remains the same more or less around 15,000. Follow-up with inflammatory markers tomorrow
[2020-02-25] MEDS: Acetaminophen 325 MG TAB PO PRN (18:00)
[2020-02-25] MEDS: Atorvastatin Calcium 40 MG TAB PO SCH (19:54)
[2020-02-26] MEDS: Albuterol 200 PUFF (6.7GM INHALER) INH SCH ×6 (02:30→22:30)
[2020-02-26 06:01] LABS: Band 5 % (5-11); Hemoglobin 12.1 g/dL (14.0-18.0); Hypochromia SLIGHT = 6-15 cells (100X) (0-5/hpf); Lymphocytes 7 % (21-51); MDiff Complete? YES; Mean Corpuscular HGB CONC 33.5 g/dL (32.0-36.0); Mean Corpuscular Hemoglobin 33.7 pg (27.0-31.0); Mean Platelet Volume 8.6 fL (7.4-10.4); Monocytes 3 % (0-10); Neutrophil 82 % (42-75); Platelet Count 143 thou/uL (130-400); Platelet Morphology Comment Appears Adequate; RBC Distribution Width 11.4 % (11.5-14.5); Reactive Lymphocytes 3 % (0-10); White Blood Cell (WBC) Count 20.2 thou/uL (4.8-10.8)
[2020-02-26] MEDS: Cholecalciferol 1,000 UNITS (25 MCG) TAB PO SCH (09:12)
[2020-02-26] MEDS: Zinc Sulfate 220 MG CAP PO SCH (09:12)
[2020-02-26] MEDS: Aspirin 81 mg Enteric Coated Tablet PO SCH (09:12)
[2020-02-26] MEDS: Amlodipine 5 MG TAB PO SCH ×2 (09:12→21:37)
[2020-02-26] MEDS: Ascorbic Acid 500 mg Chewable Tablet PO SCH (09:13)
[2020-02-26] MEDS: Losartan 25 MG TAB PO SCH (09:13)
[2020-02-26] MEDS: Azithromycin 250 MG TAB PO SCH (09:13)
[2020-02-26] MEDS: Enoxaparin Sodium 40 MG/0.4 ML SYRINGE SC SCH ×2 (09:14)
[2020-02-26] MEDS: Dexamethasone 4 mg/ml Vial SLOW IVP SCH (09:15)
[2020-02-26] MEDS: Senokot S 8.6-50 MG TAB PO SCH ×2 (09:16→22:24)
[2020-02-26] MEDS: cefTRIAXone\\ROCEPHIN 1 GM in Sodium Chloride 0.9% 100 ML IVPB SCH (09:17)
--- NOTE | 2020-02-26 12:43 | PDOC.HOSPP ---
- Subjective Encounter Date: 02/26/20 Encounter Time: 09:40 Subjective: Patient had occult blood test positive last evening. His hemoglobin stable at 12.1. He states that he had a colonoscopy by Dr. Adam in January of last year. It is unlikely GI would be able to do anything at this point especially when he is more stable and he is Covid positive. However patient wants to see . I tried to reach him over the phone to discuss with him as this is a nonemergent case and this consult could be avoided and the patient can follow-up with him as an outpatient at least after [address] the formal consult. - Objective Vital Signs & Weight: Vital Signs (12 hours) Temp Pulse Resp BP BP Pulse Ox Pulse Ox 02/26/20 11:35 98.2 F 100 20 131/61 95 02/26/20 11:17 92 L 02/26/20 09:25 99.3 F 91 18 138/63 92 L 02/26/20 03:59 92 L 02/26/20 03:15 97.9 F 70 22 H 153/71 H 98 Pulse Ox Pulse Ox 02/26/20 11:35 02/26/20 11:17 97 94 L 02/26/20 09:25 02/26/20 03:59 02/26/20 03:15 Weight Weight 201 lb 6.4 oz I&O: 02/25/20 02/26/20 02/27/20 06:59 06:59 06:59 Intake Total 960 840 Output Total 1125 925 Balance -165 -85 Result Diagrams: 02/26/20 04:54 02/23/20 01:00 Hospitalist ROS - Medication Medications: Active Medications Generic Name Dose Route Start Last Admin Trade Name Freq PRN Reason Stop Dose Admin Acetaminophen 650 mg 02/21/20 17:05 02/25/20 18:00 Acetaminophen 325 Mg Tab PO 650 mg Q4H PRN Administration Headache/Fever/Mild Pain (1-3) Albuterol Sulfate 2 puff 02/21/20 22:30 02/26/20 11:31 Albuterol 200 Puff (6.7gm Inhaler) INH 2 puff [id number] IVA Administration Amlodipine Besylate 5 mg 02/22/20 21:00 02/26/20 09:12 Amlodipine 5 Mg Tab PO 5 mg BID IVA Administration Ascorbic Acid 1,000 mg 02/25/20 09:00 02/26/20 09:13 Ascorbic Acid 500 Mg Chewable Tablet PO 1,000 mg DAILY IVA Administration Aspirin 81 mg 02/22/20 09:00 02/26/20 09:12 Aspirin 81 Mg Enteric Coated Tablet PO 81 mg DAILY IVA Administration Atorvastatin Calcium 40 mg 02/21/20 21:00 02/25/20 19:54 Atorvastatin Calcium 40 Mg Tab PO 40 mg HS VIA Administration Azithromycin 500 mg 02/24/20 09:00 02/26/20 09:13 Azithromycin 250 Mg Tab PO 02/27/20 09:01 500 mg DAILY IVA Administration Bisacodyl 10 mg 02/23/20 09:42 02/23/20 10:24 Bisacodyl 10 Mg Supp VA 10 mg Q8H PRN Administration Constipation Cholecalciferol 2,000 units 02/25/20 09:00 02/26/20 09:12 Cholecalciferol 1,000 Units (25 Mcg) Tab PO 2,000 units DAILY IVA Administration Dexamethasone 6 mg 02/25/20 09:00 02/26/20 09:15 Dexamethasone 4 Mg/Ml Vial SLOW IVP 6 mg DAILY IVA Administration Hydralazine HCl 10 mg 02/22/20 10:02 02/23/20 14:37 Hydralazine 20 Mg/Ml Vial SLOW IVP 10 mg Q4H PRN Administration SBP >150 Ceftriaxone Sodium 1 gm/ 100 mls @ 200 mls/hr 02/23/20 10:00 02/26/20 09:17 Sodium Chloride IVPB 100 mls Q24HR IVA Administration Losartan Potassium 100 mg 02/22/20 09:00 02/26/20 09:13 Losartan 25 Mg Tab PO 100 mg DAILY IVA Administration Senna/Docusate Sodium 2 tab 02/23/20 21:00 02/26/20 09:16 Senokot S 8.6-50 Mg Tab PO Not Given BID IVA Sodium Chloride 10 ml 02/23/20 21:00 02/26/20 09:16 Flush - Normal Saline 10 Ml Syringe IVF 10 ml Q12HR IVA Administration Zinc Sulfate 220 mg 02/25/20 09:00 02/26/20 09:12 Zinc Sulfate 220 Mg Cap PO 220 mg DAILY IVA Administration - Exam General Appearance: NAD, awake alert Eye: PERRL ENT: normocephalic atraumatic Neck: supple Heart: RRR Respiratory: CTAB Gastrointestinal: soft, normal bowel sounds Neurological: cranial nerve grossly intact, no focal deficits Musculoskeletal: generalized weakness Psychiatric: A&O x 3 Hosp A/P - Plan COVID-19 pneumonia, diagnosed 14 days ago, so he passed will stage for remdesivir. His sats were good initially in the room air -Since it is over 14 days ago, she would not benefit with the Decadron -Continue with vitamin C and zinc Probable noncardiac chest pain likely secondary to pneumonia -CT chest showing negative for pulmonary artery embolism -Multilobar groundglass opacity and peripheral distribution -He is on vitamin D3 Levaquin as well as Lovenox DC Levaquin Abnormal troponin due to type II metabolic mismatch demand ischemia. Mild hemoptysis -Probably due to cough will monitor closely. His hemoglobin is 13.0 and he is on baby aspirin. Coronary artery disease -Stable and on -Aspirin and Lipitor Hypertension -Increase the dose of Norvasc and continue with the Cozaar home regimen -Hydralazine as needed Chronic kidney disease Thrombocytopenia -Not severe enough to stop the anticoagulant -continue with the Lovenox. Persistent fever and leukocytosis -Cultures negative so far -He is on ceftriaxone and Zithromax. -Could be just inflammatory process. As chest x-ray shows improving infiltrate and urine analysis of is negative for any infection. -CT chest done on negative for pulmonary embolism. -Placed ID consult. Started back on Decadron. He is afebrile for the last 18 hours or so. His white count remains the same more or less around 15,000. Follow-up with inflammatory markers tomorrow Occult blood test positive His hemoglobin stable at 12.1. He states that he had a colonoscopy by Dr. Adam in January of last year. It is unlikely GI would be able to do anything at this point especially when he is more stable and he is Covid positive. However patient wants to see . I tried to reach him over the phone to discuss with him as this is a nonemergent case and this consult could be avoided and the patient can follow-up with him as an outpatient at least after 2 weeks. When I explained this to the patient he is little stubborn that he wants to see the GI specialist. I will place the formal consult. Protonix IV twice daily since he needs to be on Decadron I will discontinue the Lovenox in the context of occult blood test being positive if the hemoglobin remains stable I will restart him back on Lovenox tomorrow.
--- NOTE | 2020-02-26 17:44 | CON ---
DATE OF CONSULTATION: 02/26/2020 REQUESTING PHYSICIAN: Moises Roy MD REASON FOR CONSULTATION: Positive FOBT. HISTORY OF PRESENT ILLNESS: Lalito Chilel is a 80-year-old man, whom I met one year ago for surveillance colonoscopy. He had a prior history of colon polyps and a family history of colon cancer in his maternal grandmother. Colonoscopy in January 2019 showed pancolonic diverticulosis and two small tubular adenomas, which were both removed. I had recommended a 5-year followup colonoscopy, which would be in January 2024. The patient reports that over the past few months, he has had some variable bowel habits, sometimes going 3 to 4 days between bowel movements, other times having color changes with bowel movements being alternately very dark or brown or yellow. There was never any red blood in the stool. He is never having any abdominal pain or any changes in appetite, nausea, or vomiting. Then 5 days ago, he was admitted here with COVID pneumonia. He has been spiking fevers and chest imaging has showed characteristic findings with recently positive COVID PCR actually a couple of weeks ago. He had been on some steroids as an outpatient, but now is getting steroids and oxygen support here as an inpatient. Yesterday, he had 3 bowel movements, which all seemed very dark in color. This was concerning to nursing staff, so FOBT was ordered and it did come back positive. However, the patient has not had any further bowel movements today. There has been no red blood per rectum and his hemoglobin has been stable throughout his admission here in the 12 to 13 range, currently 12.1. Notably, he was started on IV pantoprazole twice daily as prophylaxis with the dexamethasone administration. REVIEW OF SYSTEMS: Full review of systems including constitutional, head, eyes, ears, nose, throat, GI, , cardiovascular, musculoskeletal systems is negative except as noted in the HPI. PAST MEDICAL HISTORY: Coronary artery disease; myocardial infarction; hypertension; hyperlipidemia; sleep apnea; chronic kidney disease; COVID-19 in January 2020, colon polyps, last colonoscopy in January 2019; coronary artery bypass graft; hip surgery. SOCIAL HISTORY: No smoking, alcohol, or drug use. FAMILY HISTORY: Maternal grandmother had colon cancer. PHYSICAL EXAMINATION: VITAL SIGNS: Temperature 98.2, pulse 100, blood pressure 131/61 , and oxygen saturation 95% on room air. GENERAL: A 80-year-old man, sitting up in bed comfortably, in no acute distress, but occasionally grabbing for his nasal cannula to take few respirations through it. SKIN: No jaundice. No rashes were palpable. EYES: No scleral icterus. Extraocular movements intact. ENT: Mucous membranes moist. No oral lesions. LYMPH: No submandibular or supraclavicular lymphadenopathy. THYROID: Nontender to palpation. HEART: Regular rate and rhythm. LUNGS: Bibasilar crackles. No respiratory distress. No wheezing. ABDOMEN: Protuberant, obese, nondistended. Bowel sounds present. Soft, nontender to palpation throughout. EXTREMITIES: No peripheral edema. NEURO: Cranial nerves II through XII intact bilaterally. No focal deficits. LABORATORY STUDIES: Hemoglobin 12.1, WBC is 20.2, and platelets 143. D-dimer 0.65. Sodium 139, potassium 3.6, BUN 25, and creatinine 0.96. Lactic acid 1.2. Ferritin is 1561.78. CRP is 11.41. Urinalysis negative. ASSESSMENT/PLAN: 1. Dark stools, likely did not represent melena as the patient has stable hemoglobin here. Hemoglobin currently 12.1. 2. Heme-positive stool. He did have a positive FOBT performed yesterday, but in the inpatient context, particularly with COVID-19, this really has no utility at all. Even if I thought that this actually represented significant occult bleeding source, in the context of active COVID-19 infection, no endoscopy would be considered. 3. COVID-19. The patient is getting dexamethasone. He is appropriately receiving IV PPI as gastrointestinal prophylaxis during this time. Again, I see no evidence of any significant gastrointestinal bleeding. The dark stools may not have even represented true melena, given his stable H and H. I would continue the IV PPI while on the IV steroids. We are not going to plan for any endoscopic investigation or further GI intervention. Really as he has had no bowel movements today or any abdominal pain, I doubt Clostridium difficile, so that test ordered for tomorrow can probably be canceled. GI is going to sign off, but please call back anytime with questions or concerns. Job ID: [id number]
[2020-02-26] MEDS: Pantoprazole 40 MG VIAL IVP SCH (21:38)
[2020-02-26] MEDS: Atorvastatin Calcium 40 MG TAB PO SCH (21:38)
[2020-02-27] MEDS: Albuterol 200 PUFF (6.7GM INHALER) INH SCH ×6 (02:45→22:25)
[2020-02-27 06:33] LABS: Hemoglobin 11.7 g/dL (14.0-18.0); Mean Corpuscular HGB CONC 32.2 g/dL (32.0-36.0); Mean Corpuscular Hemoglobin 32.5 pg (27.0-31.0); Mean Platelet Volume 8.7 fL (7.4-10.4); Platelet Count 176 thou/uL (130-400); RBC Distribution Width 11.4 % (11.5-14.5); Red Blood Cell (RBC) Count 3.61 mill/uL (4.70-6.10); White Blood Cell (WBC) Count 25.3 thou/uL (4.8-10.8)
[2020-02-27 06:44] LABS: Anion Gap 14 mmol/L (10-20); BUN (Urea Nitrogen) 35 mg/dL (8.4-25.7); Calc. Creatinine Clearance 73 mL/min (70-130); Calcium 7.5 mg/dL (7.8-10.44); Carbon Dioxide 23 mmol/L (23-31); Chloride 106 mmol/L (98-107); Glucose 132 mg/dL (83-110); Potassium 3.9 mmol/L (3.5-5.1); Sodium 139 mmol/L (136-145)
[2020-02-27 07:34] LABS: Band 2 % (5-11); Hypersemented Neutrophil SLIGHT; Lymphocytes 4 % (21-51); MDiff Complete? YES; Monocytes 1 % (0-10); Neutrophil 92 % (42-75); Platelet Morphology Comment Appears Adequate; Polychromasia SLIGHT = 2-3 cells (100X) (0-2/hpf); Reactive Lymphocytes 1 % (0-10)
[2020-02-27] MEDS: Cholecalciferol 1,000 UNITS (25 MCG) TAB PO SCH (08:03)
[2020-02-27] MEDS: Losartan 25 MG TAB PO SCH (08:03)
[2020-02-27] MEDS: Aspirin 81 mg Enteric Coated Tablet PO SCH (08:03)
[2020-02-27] MEDS: Azithromycin 250 MG TAB PO SCH (08:03)
[2020-02-27] MEDS: Zinc Sulfate 220 MG CAP PO SCH (08:03)
[2020-02-27] MEDS: Amlodipine 5 MG TAB PO SCH ×2 (08:03→22:46)
[2020-02-27] MEDS: Pantoprazole 40 MG VIAL IVP SCH ×2 (08:04→22:46)
[2020-02-27] MEDS: Dexamethasone 4 mg/ml Vial SLOW IVP SCH (08:04)
[2020-02-27] MEDS: Senokot S 8.6-50 MG TAB PO SCH ×2 (08:05→22:45)
[2020-02-27] MEDS: cefTRIAXone\\ROCEPHIN 1 GM in Sodium Chloride 0.9% 100 ML IVPB SCH (08:08)
[2020-02-27] MEDS: Ascorbic Acid 500 mg Chewable Tablet PO SCH (08:09)
--- NOTE | 2020-02-27 11:52 | PDOC.HOSPP ---
- Subjective Encounter Date: 02/27/20 Encounter Time: 09:10 Subjective: patient appears well his hemoglobin stable. And no further dark stool. He does have elevated white count but he is nontoxic and afebrile. - Objective Vital Signs & Weight: Vital Signs (12 hours) Temp Pulse Resp BP BP Pulse Ox 02/27/20 11:03 97.9 F 78 20 129/60 93 L 02/27/20 08:05 93 L 02/27/20 08:02 86 L 02/27/20 07:45 97.9 F 75 16 133/61 95 02/27/20 02:58 98.2 F 83 22 H 136/64 95 Weight Weight 201 lb 6.4 oz I&O: 02/26/20 02/27/20 02/28/20 06:59 06:59 06:59 Intake Total 840 1091.5 Output Total 925 800 525 Balance -85 291.5 -525 Result Diagrams: 02/27/20 05:39 02/27/20 05:39 Hospitalist ROS - Medication Medications: Active Medications Generic Name Dose Route Start Last Admin Trade Name Freq PRN Reason Stop Dose Admin Acetaminophen 650 mg 02/21/20 17:05 02/25/20 18:00 Acetaminophen 325 Mg Tab PO 650 mg Q4H PRN Administration Headache/Fever/Mild Pain (1-3) Albuterol Sulfate 2 puff 02/21/20 22:30 02/27/20 10:58 Albuterol 200 Puff (6.7gm Inhaler) INH 2 puff [id number] IVA Administration Amlodipine Besylate 5 mg 02/22/20 21:00 02/27/20 08:03 Amlodipine 5 Mg Tab PO 5 mg BID IVA Administration Ascorbic Acid 1,000 mg 02/25/20 09:00 02/27/20 08:09 Ascorbic Acid 500 Mg Chewable Tablet PO 1,000 mg DAILY IVA Administration Aspirin 81 mg 02/22/20 09:00 02/27/20 08:03 Aspirin 81 Mg Enteric Coated Tablet PO 81 mg DAILY IVA Administration Atorvastatin Calcium 40 mg 02/21/20 21:00 02/26/20 21:38 Atorvastatin Calcium 40 Mg Tab PO 40 mg HS IVA Administration Bisacodyl 10 mg 02/23/20 09:42 02/23/20 10:24 Bisacodyl 10 Mg Supp AR 10 mg Q8H PRN Administration Constipation Cholecalciferol 2,000 units 02/25/20 09:00 02/27/20 08:03 Cholecalciferol 1,000 Units (25 Mcg) Tab PO 2,000 units DAILY IVA Administration Dexamethasone 6 mg 02/25/20 09:00 02/27/20 08:04 Dexamethasone 4 Mg/Ml Vial SLOW IVP 6 mg DAILY IVA Administration Hydralazine HCl 10 mg 02/22/20 10:02 02/23/20 14:37 Hydralazine 20 Mg/Ml Vial SLOW IVP 10 mg Q4H PRN Administration SBP >150 Ceftriaxone Sodium 1 gm/ 100 mls @ 200 mls/hr 02/23/20 10:00 02/27/20 08:08 Sodium Chloride IVPB 100 mls Q24HR IVA Administration Losartan Potassium 100 mg 02/22/20 09:00 02/27/20 08:03 Losartan 25 Mg Tab PO 100 mg DAILY IVA Administration Pantoprazole Sodium 40 mg 02/26/20 21:00 02/27/20 08:04 Pantoprazole 40 Mg Vial IVP 40 mg BID IVA Administration Senna/Docusate Sodium 2 tab 02/23/20 21:00 02/27/20 08:05 Senokot S 8.6-50 Mg Tab PO Not Given BID IVA Sodium Chloride 10 ml 02/23/20 21:00 02/27/20 08:04 Flush - Normal Saline 10 Ml Syringe IVF 10 ml Q12HR IVA Administration Zinc Sulfate 220 mg 02/25/20 09:00 02/27/20 08:03 Zinc Sulfate 220 Mg Cap PO 220 mg DAILY IVA Administration - Exam General Appearance: NAD, awake alert Eye: PERRL ENT: normocephalic atraumatic Neck: supple Heart: RRR Respiratory: CTAB, normal chest expansion Gastrointestinal: soft, normal bowel sounds Extremities: 1+ LE edema Neurological: cranial nerve grossly intact, no weakness Musculoskeletal: generalized weakness Hosp A/P - Plan COVID-19 pneumonia, diagnosed 14 days ago, so he passed will stage for remdesivir. His sats were good initially in the room air -Since it is over 14 days ago, she would not benefit with the Decadron -Continue with vitamin C and zinc Probable noncardiac chest pain likely secondary to pneumonia -CT chest showing negative for pulmonary artery embolism -Multilobar groundglass opacity and peripheral distribution -He is on vitamin D3 Levaquin as well as Lovenox DC Levaquin Abnormal troponin due to type II metabolic mismatch demand ischemia. Mild hemoptysis -Probably due to cough will monitor closely. His hemoglobin is 13.0 and he is on baby aspirin. Coronary artery disease -Stable and on -Aspirin and Lipitor Hypertension -Increase the dose of Norvasc and continue with the Cozaar home regimen -Hydralazine as needed Chronic kidney disease Thrombocytopenia -Not severe enough to stop the anticoagulant -continue with the Lovenox. Persistent fever and leukocytosis -Cultures negative so far -He is on ceftriaxone and Zithromax. -Could be just inflammatory process. As chest x-ray shows improving infiltrate and urine analysis of is negative for any infection. -CT chest done on negative for pulmonary embolism. -Placed ID consult. Started back on Decadron. He is afebrile for the last 18 hours or so. His white count remains the same more or less around 15,000. Follow-up with inflammatory markers tomorrow Occult blood test positive His hemoglobin stable at 12.1. He states that he had a colonoscopy by Dr. Adam in January of last year. It is unlikely GI would be able to do anything at t his point especially when he is more stable and he is Covid positive. However patient wants to see . I tried to reach him over the phone to discuss with him as this is a nonemergent case and this consult could be avoided and the patient can follow-up with him as an outpatient at least after 2 weeks. When I explained this to the patient he is little stubborn that he wants to see the GI specialist. I will place the formal consult. Protonix IV twice daily since he needs to be on Decadron I will discontinue the Lovenox in the context of occult blood test being positive if the hemoglobin remains stable I will restart him back on Lovenox tomorrow. 30 Hemoglobin stable no further melena Leukocytosis--- probably steroid-induced however want to make sure it is stabilized prior to discharge him. We will follow-up tomorrow. If he looks clinically stable possible discharge.
[2020-02-27] MEDS: Atorvastatin Calcium 40 MG TAB PO SCH (22:46)
[2020-02-28 05:23] LABS: Band 1 % (5-11); Hemoglobin 11.3 g/dL (14.0-18.0); Hypochromia SLIGHT = 6-15 cells (100X) (0-5/hpf); Lymphocytes 4 % (21-51); MDiff Complete? YES; Macrocytosis SLIGHT = 6-15 cells (100X) (0-5/hpf); Mean Corpuscular HGB CONC 32.2 g/dL (32.0-36.0); Mean Corpuscular Hemoglobin 32.6 pg (27.0-31.0); Mean Platelet Volume 9.1 fL (7.4-10.4); Monocytes 5 % (0-10); Neutrophil 90 % (42-75); Platelet Count 174 thou/uL (130-400); Platelet Morphology Comment Appears Adequate; RBC Distribution Width 11.3 % (11.5-14.5); Red Blood Cell (RBC) Count 3.46 mill/uL (4.70-6.10); White Blood Cell (WBC) Count 22.4 thou/uL (4.8-10.8)
[2020-02-28] MEDS: Albuterol 200 PUFF (6.7GM INHALER) INH SCH ×6 (05:29→23:47)
[2020-02-28] MEDS: Ascorbic Acid 500 mg Chewable Tablet PO SCH (10:30)
[2020-02-28] MEDS: Cholecalciferol 1,000 UNITS (25 MCG) TAB PO SCH (10:30)
[2020-02-28] MEDS: Amlodipine 5 MG TAB PO SCH ×2 (10:31→20:08)
[2020-02-28] MEDS: Losartan 25 MG TAB PO SCH (10:31)
[2020-02-28] MEDS: Zinc Sulfate 220 MG CAP PO SCH (10:32)
[2020-02-28] MEDS: Aspirin 81 mg Enteric Coated Tablet PO SCH (10:32)
[2020-02-28] MEDS: Senokot S 8.6-50 MG TAB PO SCH ×2 (10:32→20:09)
[2020-02-28] MEDS: Dexamethasone 4 mg/ml Vial SLOW IVP SCH (10:32)
[2020-02-28] MEDS: Pantoprazole 40 MG VIAL IVP SCH ×2 (10:34→20:09)
--- NOTE | 2020-02-28 12:32 | PDOC.HOSPP ---
- Subjective Encounter Date: 02/28/20 Encounter Time: 10:50 Subjective: Patient is sitting in the bed he is not in any acute distress his white count is trending down. I believe with exertion his sats are dropping to 92% even with a 2 L oxygen. He may need to go home with home oxygen. - Objective Vital Signs & Weight: Vital Signs (12 hours) Temp Pulse Resp BP Pulse Ox 02/28/20 10:55 97.6 F 79 16 157/70 H 96 02/28/20 07:28 98.2 F 74 18 117/63 93 L 02/28/20 04:00 97.7 F 69 17 124/64 91 L 02/28/20 03:29 92 L Weight Weight 201 lb 6.4 oz I&O: 02/27/20 02/28/20 02/29/20 06:59 06:59 06:59 Intake Total 1091.5 1300 Output Total 800 1450 250 Balance 291.5 -150 -250 Result Diagrams: 02/28/20 04:25 02/27/20 05:39 Hospitalist ROS - Medication Medications: Active Medications Generic Name Dose Route Start Last Admin Trade Name Freq PRN Reason Stop Dose Admin Acetaminophen 650 mg 02/21/20 17:05 02/25/20 18:00 Acetaminophen 325 Mg Tab PO 650 mg Q4H PRN Administration Headache/Fever/Mild Pain (1-3) Albuterol Sulfate 2 puff 02/21/20 22:30 02/28/20 10:37 Albuterol 200 Puff (6.7gm Inhaler) INH 2 puff [id number] IVA Administration Amlodipine Besylate 5 mg 02/22/20 21:00 02/28/20 10:31 Amlodipine 5 Mg Tab PO 5 mg BID IVA Administration Ascorbic Acid 1,000 mg 02/25/20 09:00 02/28/20 10:30 Ascorbic Acid 500 Mg Chewable Tablet PO 1,000 mg DAILY IVA Administration Aspirin 81 mg 02/22/20 09:00 02/28/20 10:32 Aspirin 81 Mg Enteric Coated Tablet PO 81 mg DAILY IVA Administration Atorvastatin Calcium 40 mg 02/21/20 21:00 02/27/20 22:46 Atorvastatin Calcium 40 Mg Tab PO 40 mg HS IVA Administration Bisacodyl 10 mg 02/23/20 09:42 02/23/20 10:24 Bisacodyl 10 Mg Supp NM 10 mg Q8H PRN Administration Constipation Cholecalciferol 2,000 units 02/25/20 09:00 02/28/20 10:30 Cholecalciferol 1,000 Units (25 Mcg) Tab PO 2,000 units DAILY IVA Administration Dexamethasone 6 mg 02/25/20 09:00 02/28/20 10:32 Dexamethasone 4 Mg/Ml Vial SLOW IVP 6 mg DAILY IVA Administration Hydralazine HCl 10 mg 02/22/20 10:02 02/23/20 14:37 Hydralazine 20 Mg/Ml Vial SLOW IVP 10 mg Q4H PRN Administration SBP >150 Ceftriaxone Sodium 1 gm/ 100 mls @ 200 mls/hr 02/23/20 10:00 02/27/20 08:08 Sodium Chloride IVPB 100 mls Q24HR IVA Administration Losartan Potassium 100 mg 02/22/20 09:00 02/28/20 10:31 Losartan 25 Mg Tab PO 100 mg DAILY IVA Administration Pantoprazole Sodium 40 mg 02/26/20 21:00 02/28/20 10:34 Pantoprazole 40 Mg Vial IVP 40 mg BID IVA Administration Senna/Docusate Sodium 2 tab 02/23/20 21:00 02/28/20 10:32 Senokot S 8.6-50 Mg Tab PO 2 tab BID IVA Administration Sodium Chloride 10 ml 02/23/20 21:00 02/28/20 10:36 Flush - Normal Saline 10 Ml Syringe IVF 10 ml Q12HR IVA Administration Zinc Sulfate 220 mg 02/25/20 09:00 02/28/20 10:32 Zinc Sulfate 220 Mg Cap PO 220 mg DAILY IVA Administration - Exam General Appearance: NAD, awake alert Eye: PERRL ENT: normocephalic atraumatic Neck: supple Heart: RRR, normal peripheral pulses Respiratory: CTAB, normal chest expansion Gastrointestinal: soft, normal bowel sounds Neurological: cranial nerve grossly intact, no new deficit Psychiatric: normal affect, normal behavior, A&O x 3 Hosp A/P - Plan COVID-19 pneumonia, diagnosed 14 days ago, so he passed will stage for remdesivir. His sats were good initially in the room air -Since it is over 14 days ago, she would not benefit with the Decadron -Continue with vitamin C and zinc Probable noncardiac chest pain likely secondary to pneumonia -CT chest showing negative for pulmonary artery embolism -Multilobar groundglass opacity and peripheral distribution -He is on vitamin D3 Levaquin as well as Lovenox DC Levaquin Abnormal troponin due to type II metabolic mismatch demand ischemia. Mild hemoptysis -Probably due to cough will monitor closely. His hemoglobin is 13.0 and he is on baby aspirin. Coronary artery disease -Stable and on -Aspirin and Lipitor Hypertension -Increase the dose of Norvasc and continue with the Cozaar home regimen -Hydralazine as needed Chronic kidney disease Thrombocytopenia -Not severe enough to stop the anticoagulant -continue with the Lovenox. Persistent fever and leukocytosis -Cultures negative so far -He is on ceftriaxone and Zithromax. -Could be just inflammatory process. As chest x-ray shows improving infiltrate and urine analysis of is negative for any infection. -CT chest done on negative for pulmonary embolism. -Placed ID consult. Started back on Decadron. He is afebrile for the last 18 hours or so. His white count remains the same more or less around 15,000. Follow-up with inflammatory markers tomorrow Occult blood test positive His hemoglobin stable at 12.1. He states that he had a colonoscopy by Dr. Adam in January of last year. It is unlikely GI would be able to do anything at this point especially when he is more stable and he is Covid positive. However patient wants to see . I tried to reach him over the phone to discuss wi th him as this is a nonemergent case and this consult could be avoided and the patient can follow-up with him as an outpatient at least after 2 weeks. When I explained this to the patient he is little stubborn that he wants to see the GI specialist. I will place the formal consult. Protonix IV twice daily since he needs to be on Decadron I will discontinue the Lovenox in the context of occult blood test being positive if the hemoglobin remains stable I will restart him back on Lovenox tomorrow. 30 Hemoglobin stable no further melena Leukocytosis--- probably steroid-induced however want to make sure it is stabilized prior to discharge him. We will follow-up tomorrow. If he looks clinically stable possible discharge. Is white count is trending down currently is 22,000. He still requires oxygen sats only around 92% with a 2 L oxygen he probably would benefit with a home oxygen upon discharge. We will look into it. Plan for discharge tomorrow if he continued to express clinical stability.
[2020-02-28] MEDS: cefTRIAXone\\ROCEPHIN 1 GM in Sodium Chloride 0.9% 100 ML IVPB SCH (13:07)
[2020-02-28] MEDS: Atorvastatin Calcium 40 MG TAB PO SCH (20:09)
[2020-02-29] MEDS: Albuterol 200 PUFF (6.7GM INHALER) INH SCH ×3 (03:17→10:59)
[2020-02-29] MEDS: Senokot S 8.6-50 MG TAB PO SCH (08:40)
[2020-02-29] MEDS: Aspirin 81 mg Enteric Coated Tablet PO SCH (08:40)
[2020-02-29] MEDS: cefTRIAXone\\ROCEPHIN 1 GM in Sodium Chloride 0.9% 100 ML IVPB SCH (08:41)
[2020-02-29] MEDS: Ascorbic Acid 500 mg Chewable Tablet PO SCH (08:41)
[2020-02-29] MEDS: Dexamethasone 4 mg/ml Vial SLOW IVP SCH (08:42)
[2020-02-29] MEDS: Amlodipine 5 MG TAB PO SCH (08:42)
[2020-02-29] MEDS: Cholecalciferol 1,000 UNITS (25 MCG) TAB PO SCH (08:42)
[2020-02-29] MEDS: Zinc Sulfate 220 MG CAP PO SCH (08:42)
[2020-02-29] MEDS: Pantoprazole 40 MG VIAL IVP SCH (08:55)
[2020-02-29] MEDS: Losartan 25 MG TAB PO SCH (08:55)
[2020-02-29 10:40] LABS: Band 1 % (5-11); Hemoglobin 12.1 g/dL (14.0-18.0); Lymphocytes 13 % (21-51); MDiff Complete? YES; Mean Corpuscular Hemoglobin 33.4 pg (27.0-31.0); Mean Platelet Volume 8.7 fL (7.4-10.4); Monocytes 2 % (0-10); Neutrophil 84 % (42-75); Platelet Count 192 thou/uL (130-400); RBC Distribution Width 11.2 % (11.5-14.5); Red Blood Cell (RBC) Count 3.61 mill/uL (4.70-6.10); White Blood Cell (WBC) Count 20.3 thou/uL (4.8-10.8)
[2020-02-29 11:25] VITALS: BP 133/63; TEMP 97.5
--- NOTE | 2020-02-29 13:26 | PDOC.DS.DS ---
Provider - Provider Date of Admission: 02/23/20 14:52 Admitting Provider: Marta Cornelius MD Primary Care Physician: Naseem Ribeiro MD Course - Hospital Course Hospital Course: 80-year-old male presented with COVID-19 pneumonia, diagnosed 14 days ago, so he passed will stage for remdesivir. His sats were good initially in the room air Probable noncardiac chest pain likely secondary to pneumonia -CT chest showing negative for pulmonary artery embolism -Multilobar groundglass opacity and peripheral distribution -He is on vitamin D3 Levaquin as well as Lovenox DC Levaquin Abnormal troponin due to type II metabolic mismatch demand ischemia. Mild hemoptysis -Due to Covid pneumonia his hemoglobin is 13.0 and he is on baby aspirin. Coronary artery disease -Stable and on -Aspirin and Lipitor Hypertension -Increase the dose of Norvasc and continue with the Cozaar home regimen -Hydralazine as needed Chronic kidney disease Thrombocytopenia -Not severe enough to stop the anticoagulant -continue with the Lovenox. Occult blood test positive was +v on His hemoglobin stable at 12.1. He states that he had a colonoscopy by Dr. Adam in January of last year. Occult blood test could be positive due to Covid pneumonia. No need for endoscopy study at this time. He will follow with Dr. Gurinder Adam as needed. He is discharged with Protonix daily. Dr. Barger did see him as an inpatient and no intervention required at this time. He had elevated white count and that could be due to Covid pneumonia as well as Decadron. He is clinically stable white count remained stable and the trending down. He will be following with routine labs in the [place] next week. Discharge time over 30 minutes. - Labs Lab Results: 02/29/20 10:11 02/27/20 05:39 Abnormal Lab Results - Last 48 hrs 02/28/20 04:25: WBC 22.4 H, RBC 3.46 L, Hgb 11.3 L, Hct 35.0 L, MCV 101.0 H, MCH 32.6 H, RDW 11.3 L, Neutrophils % (Manual) 90 H, Band Neuts % (Manual) 1 L, Lymphocytes % (Manual) 4 L 02/29/20 04:33: C-Reactive Protein 1.63 H 02/29/20 04:33: Ferritin 2008.50 H 02/29/20 10:11: WBC 20.3 H, RBC 3.61 L, Hgb 12.1 L, Hct 36.6 L, MCV 101.0 H, MCH 33.4 H, RDW 11.2 L, Neutrophils % (Manual) 84 H, Band Neuts % (Manual) 1 L, Lymphocytes % (Manual) 13 L Microbiology - Entire Visit 02/23/20 09:47 Venous blood - Right Hand Blood Culture - Final NO GROWTH IN 5 DAYS 02/23/20 09:47 Venous blood - Left Hand Blood Culture - Final NO GROWTH IN 5 DAYS 02/21/20 11:01 Venous blood - Left Arm Blood Culture - Final NO GROWTH IN 5 DAYS 02/21/20 10:54 Venous blood - Right Arm Blood Culture - Final NO GROWTH IN 5 DAYS 02/25/20 21:15 Stool - Loose Stool Occult Blood (CAROLE) - Final - Physical Exam Vitals: Vital Signs (12 hours) Temp Pulse Resp BP BP Pulse Ox Pulse Ox 02/29/20 11:15 97.5 F L 72 18 133/63 91 L 02/29/20 11:02 90 L 02/29/20 08:34 98.3 F 69 16 147/62 H 97 02/29/20 04:00 98.0 F 59 L 18 140/67 97 Pulse Ox 02/29/20 11:15 02/29/20 11:02 95 02/29/20 08:34 02/29/20 04:00 Weight Weight 201 lb 6.4 oz Physical Exam: The patient was seen and examined on the day of discharge. Patient appears well he still requires oxygen by nasal cannula especially during ambulation. His oxygen sats ranged from 97% with 2 L oxygen. We arranged for home oxygen as today if he should be able to get it today before going home. Plan - Discharge Medications Prescriptions: Aspirin [Ecotrin Low Strength] 81 mg PO DAILY 30 Days #30 tab Atorvastatin Calcium [Lipitor] 40 mg PO HS 30 Days #30 tab Pantoprazole [Protonix] 40 mg PO DAILY 30 Days #30 tab Home Medications: Medication Instructions Recorded Confirmed Type Losartan Potassium 100 mg PO DAILY 07/08/15 02/22/20 History Multivitamin [Multivitamins] 1 cap PO DAILY 07/08/15 02/22/20 History Selenium 200 mcg PO DAILY 07/08/15 02/22/20 History Simvastatin [Zocor] 40 mg PO HS 07/08/15 02/22/20 History Amlodipine Besylate [amLODIPine 1 tab PO DAILY 12/17/16 02/22/20 History Besylate] Ascorbic Acid [Vitamin C] 2,000 mg PO DAILY 02/22/20 02/22/20 History Aspirin [Ecotrin Low Strength] 81 mg PO DAILY 02/22/20 02/22/20 History Cholecalciferol (Vitamin D3) 125 mcg PO DAILY 02/22/20 02/22/20 History [Vitamin D3] Levothyroxine Sodium 25 mcg PO DAILY 02/22/20 02/22/20 History [Levothyroxine] Ranolazine [Ranexa] 500 mg PO BID 02/22/20 02/22/20 History Selenium 200 mcg PO DAILY 02/22/20 02/22/20 History Ventolin HFA Inhaler 2 puff INH Q4HR PRN 02/22/20 02/22/20 History predniSONE [Prednisone] 5 mg PO DAILY 02/22/20 02/22/20 History Aspirin [Ecotrin Low Strength] 81 mg PO DAILY 30 Days #30 tab 02/29/20 Rx Atorvastatin Calcium [Lipitor] 40 mg PO HS 30 Days #30 tab 02/29/20 Rx Pantoprazole [Protonix] 40 mg PO DAILY 30 Days #30 tab 02/29/20 Rx Allergies: FLAQIUTO Inhibitors Allergy (Verified 02/21/20 21:49) morphine Allergy (Verified 02/21/20 21:49) rash,itch - Discharge Instructions Discharge Instructions:: Follow-up with the PCP in 1 week Follow-up with Dr. Gurinder Adam in 2 to 3 weeks as needed Activity:: Activity as Tolerated Nourishment:: Heart Healthy Diet - Follow up Plan Referrals: Naseem Ribeiro MD [Primary Care Provider] - Disposition: HOME Quality - Care Measures CORE MEASURES:: N/A
--- NOTE | 2020-03-01 02:34 | PQF ---
CLINICAL DOCUMENTATION CLARIFICATION FORM: Dear : Moises Roy Date / Time: 03/01/20432 Please exercise your independent, professional judgment in responding to the clarification form. Clinical indicators are provided on the bottom of this form for your review Please check appropriate box(es): [ ] Sepsis due to Covid Pneumonia [ ] Localized infection without sepsis [ x ] Other diagnosis ___SIRS [ ] Unable to determine In addition, please specify: Present on Admission (POA): [ ] Yes [ ] No [ ] Unable to determine Physician Signature: Date/Time: For continuity of documentation, please document condition throughout progress notes and discharge summary. Thank You. To be completed by CDI/Coding staff for physician review: Present Clinical Indicators - Signs / Symptoms / Labs Results and Location in Medical Record [x] WBC 15.7, Plt count 112, Neutrophils 90.0, Band 3, Lactic Acid 2.1 Laboratory 02/20 [x] Blood bank: No growth in 5 days Microbiology 02/20 [x] BP 143/62, Pulse 120, Resp 24, Temp 102.8 Vital signs 02/20 [x] Pt diagnosed with Covid 19 14 days ago H&P p1 02/20 Dr Cornelius [x] Covid pneumonia H&P p1 02/20 Dr Cornelius [x] Pt temp spike of 103.2 Event note p1 02/20 Nata PA-C [x] Leukocytosis HPN p3 02/24 Dr Roy Present Risk Factors Results and Location in Medical Record [x] 80 year-old Male H&P p1 02/20 Dr Cornelius [x] HTN H&P p1 02/20 Dr Cornelius [x] CKD H&P p1 02/20 Dr Cornelius [x] Covid pneumonia H&P p1 02/20 Dr Cornelius Present Treatments Results and Location in Medical Record [x] IVF NS 1L MAY 09 [x] IV Ceftriaxone 1 gm MAY 09 [x] IV Azithromax 500 mg MAY 09 [x] Sepsis protocol ED notes p2 02/20 [x] ID consult Consult Dr Martins 02/23 [facility] Folder Signature: Radha Shin Phone #: [phone] Date/Time: 03/01/20432 This is a permanent part of the Medical Record [facility]
--- NOTE | 2020-03-01 16:35 | EKG ---
Test Reason : Blood Pressure : / mmHG Vent. Rate : 083 BPM Atrial Rate : 083 BPM P-R Int : 134 ms QRS Dur : 088 ms QT Int : 436 ms P-R-T Axes : 031 024 034 degrees QTc Int : 512 ms Normal sinus rhythm with sinus arrhythmia Possible Left atrial enlargement Inferior-posterior infarct , age undetermined Abnormal ECG Confirmed by JASIEL CISNEROS M.D. ([id number]), map editor VENICE CORRAL ([id number]) on 03/01/2020 4:35:37 PM Referred By: Confirmed By:JASIEL CISNEROS M.D.
== END 2020-02-29 16:05 | disposition home or self-care (01) | DRG 177 ==
LOC: ERS 10:17 → 2SW 14:56 → OBSVTOIN 02-23 14:52 → 2NO 02-28 18:37
PROVIDERS: ADMIT Internal Medicine; ATTEND Internal Medicine
PROC: 8E0ZXY6 Isolation (ICD-10-PCS; principal; 2020-02-25)
DX: U07.1 COVID-19 (principal); J12.82 Pneumonia due to coronavirus disease 2019; I24.8 Other forms of acute ischemic heart disease; R04.2 Hemoptysis; R65.10 Systemic inflammatory response syndrome (SIRS) of non-infectious origin without acute organ dysfunction; I25.10 Atherosclerotic heart disease of native coronary artery without angina pectoris; I12.9 Hypertensive chronic kidney disease with stage 1 through stage 4 chronic kidney disease, or unspecified chronic kidney disease; E78.5 Hyperlipidemia, unspecified; R19.5 Other fecal abnormalities; D69.6 Thrombocytopenia, unspecified; N18.30 Chronic kidney disease, stage 3 unspecified; E66.9 Obesity, unspecified; Z95.1 Presence of aortocoronary bypass graft; Z88.5 Allergy status to narcotic agent; Z88.8 Allergy status to other drugs, medicaments and biological substances; I25.2 Old myocardial infarction; Z68.28 Body mass index [BMI] 28.0-28.9, adult; Z83.1 Family history of other infectious and parasitic diseases; Z79.899 Other long term (current) drug therapy; Z79.82 Long term (current) use of aspirin; Z86.010 Personal history of colon polyps; G47.30 Sleep apnea, unspecified; Z80.0 Family history of malignant neoplasm of digestive organs
CPT/HCPCS: 36415; 71045; 71275; 80048; 80053; 81003; 82274; 82553; 82728; 83605; 83735; 83880; 84484; 85025; 85379; 86140; 87040; 93005; 94664; 96365; 96366; 96372; 96375; 96376; C9113; G0378; J0360; J0456; J0696; J1100; J1650; J3490; Q9967

== ENCOUNTER 2020-05-16 17:34 | Outpatient (CLI) | payer MEDICARE ==
[2020-05-16 18:46] LABS: #Eosinphils 0.1 10x3/uL (0.0-0.5); #Monocytes 0.6 10x3/uL (0.0-1.1); #Neutrophils 4.4 10x3/uL (1.5-8.4); %Basophils 0.4 % (0.0-2.0); %Eosinophils 0.8 % (0.0-6.0); %Monocytes 7.9 % (0.0-10.0); %Neutrophils 61.8 % (40.0-75.0); Mean Corpuscular HGB CONC 32.9 g/dL (32.0-36.0); Mean Corpuscular Hemoglobin 33.3 pg (27.0-33.0); Mean Corpuscular Volume 101.3 fl (81.2-95.1); Mean Platelet Volume 10.4 fl (7.4-10.4); Platelet Count 204 10x3/uL (150-450); White Blood Cell (WBC) Count 7.1 10x3/uL (3.5-10.5)
[2020-05-16 18:56] LABS: ALT (SGPT) 20 U/L (8-55); AST (SGOT) 24 U/L (5-34); Alkaline Phosphatase 103 U/L (40-110); Anion Gap 10 mmol/L (10-20); BUN (Urea Nitrogen) 14 mg/dL (8.4-25.7); Bilirubin, Total 0.8 mg/dL (0.2-1.2); Calc. Creatinine Clearance 0 mL/min (70-130); Calcium 8.7 mg/dL (7.8-10.44); Carbon Dioxide 29 mmol/L (23-31); Chloride 108 mmol/L (98-107); Globulin 2.4 g/dL (2.4-3.5); Glucose 108 mg/dL (83-110); Potassium 3.9 mmol/L (3.5-5.1); Protein, Total 6.4 g/dL (5.8-8.1); Sodium 143 mmol/L (136-145)
[2020-05-17 03:55] LABS: SARS-CoV-2 PCR by NAA Not Detected (NotDetected)
== END 2020-05-16 17:35 | disposition home or self-care (01) ==
LOC: LAB 17:34
PROVIDERS: ATTEND Family Medicine
DX: Z01.812 Encounter for preprocedural laboratory examination (principal); Z20.822 Contact with and (suspected) exposure to COVID-19
CPT/HCPCS: 80053; 85025; 87635; U0003; U0005

== ENCOUNTER 2020-05-21 05:41 | Day surgery (SDC) | payer MEDICARE ==
[2020-05-20 14:34] VITALS: BMI 28.7
[2020-05-21] MEDS ORDERED: Lidocaine 1% (PF) 30 ML VIAL ONE (06:42)
[2020-05-21] MEDS ORDERED: Fentanyl 100 MCG/2 ML VIAL ONE (07:25)
[2020-05-21] MEDS ORDERED: Midazolam HCl 2 mg/2 ml Vial ONE (07:25)
[2020-05-21] MEDS ORDERED: Iopamidol 370 76% 100 ML VIAL ONE (08:39)
== END 2020-05-21 12:46 | disposition home or self-care (01) ==
LOC: CCL 05:41
PROVIDERS: ATTEND Internal Medicine Cardiovascular Disease
PROC: 4A023N7 Measurement of Cardiac Sampling and Pressure, Left Heart, Percutaneous Approach (ICD-10-PCS; principal; 2020-05-21)
PROC: B2111ZZ Fluoroscopy of Multiple Coronary Arteries using Low Osmolar Contrast (ICD-10-PCS; 2020-05-21)
PROC: B2181ZZ Fluoroscopy of Left Internal Mammary Bypass Graft using Low Osmolar Contrast (ICD-10-PCS; 2020-05-21)
PROC: B2121ZZ Fluoroscopy of Single Coronary Artery Bypass Graft using Low Osmolar Contrast (ICD-10-PCS; 2020-05-21)
DX: I25.119 Atherosclerotic heart disease of native coronary artery with unspecified angina pectoris (principal); I11.0 Hypertensive heart disease with heart failure; I50.9 Heart failure, unspecified; E78.00 Pure hypercholesterolemia, unspecified; I25.2 Old myocardial infarction; G47.33 Obstructive sleep apnea (adult) (pediatric); Z87.891 Personal history of nicotine dependence; Z79.02 Long term (current) use of antithrombotics/antiplatelets; Z79.82 Long term (current) use of aspirin; Z79.899 Other long term (current) drug therapy; Z88.5 Allergy status to narcotic agent; Z88.8 Allergy status to other drugs, medicaments and biological substances; Z95.1 Presence of aortocoronary bypass graft; Z95.5 Presence of coronary angioplasty implant and graft
CPT/HCPCS: 76942; 93461; 99152; 99153; J2001; J2250; J3010; Q9967

== ENCOUNTER 2022-04-16 10:18 | Outpatient (CLI) | payer MEDICARE ==
[2022-04-16 10:56] LABS: Bilirubin Neg (Negative); Blood, Urine 10 (Negative); Clarity Clear (Clear); Glucose, Urine (Dipstick) Normal (Negative); Ketone, Urine Negative (Negative); Leukocyte Negative (Negative); Nitrite Negative (Negative); Protein, Urine (Dipstick) Negative (Neg-Trace); Specific Gravity, Urine 1.015 (1.005-1.030); Urobilinogen Normal mg/dL (Less than 2)
[2022-04-16 11:01] LABS: Hemoglobin 13.3 g/dL (13.5-17.5); Mean Corpuscular HGB CONC 32.4 g/dL (32.0-36.0); Mean Corpuscular Hemoglobin 33.6 pg (27.0-33.0); Mean Corpuscular Volume 103.5 fl (81.2-95.1); Mean Platelet Volume 9.5 fl (7.4-10.4); Platelet Count 210 10x3/uL (150-450); RBC Distribution Width 12.5 % (11.5-14.5); Red Blood Cell (RBC) Count 3.96 10x6/uL (4.32-5.72); White Blood Cell (WBC) Count 6.8 10x3/uL (3.5-10.5)
[2022-04-16 11:08] LABS: Anion Gap 12 mmol/L (10-20); BUN (Urea Nitrogen) 17 mg/dL (8.4-25.7); Calc. Creatinine Clearance 0 mL/min (70-130); Calcium 8.9 mg/dL (7.8-10.44); Carbon Dioxide 26 mmol/L (23-31); Chloride 106 mmol/L (98-107); Estimated GFR 66; Glucose 111 mg/dL (83-110); Sodium 140 mmol/L (136-145)
[2022-04-16 11:10] LABS: INR-International Normal Ratio 0.9; PTT 26.9 sec (22.0-33.0); Prothrombin Time 10.3 sec (9.5-12.1)
[2022-04-16 11:29] LABS: RBC/HPF 0-3 HPF (0-3); Squamous Epithelial 0-3 HPF (0-3); WBC/HPF 0-3 HPF (0-3)
[2022-04-16 11:30] LABS: Bacteria/HPF Rare-Few HPF (None Seen)
== END 2022-04-16 10:19 | disposition home or self-care (01) ==
LOC: LABBT 10:18
PROVIDERS: ATTEND Urology
DX: Z01.812 Encounter for preprocedural laboratory examination (principal); N40.1 Benign prostatic hyperplasia with lower urinary tract symptoms; R39.14 Feeling of incomplete bladder emptying; N35.919 Unspecified urethral stricture, male, unspecified site; N32.89 Other specified disorders of bladder; N39.0 Urinary tract infection, site not specified
CPT/HCPCS: 80048; 81001; 85027; 85610; 85730; 87086; 93005; 93010

== ENCOUNTER 2022-04-29 06:02 | Day surgery (SDC) | payer MEDICARE ==
[2022-04-27 12:00] VITALS: BMI 28.4
[2022-04-29] MEDS ORDERED: Lidocaine 1% MPF 2 ML VIAL ONE (07:32)
[2022-04-29] MEDS ORDERED: Levofloxacin 500 mg/D5W 100 ml Premix Bag ONE (07:32)
[2022-04-29] MEDS ORDERED: Lidocaine 1% PF 5 ML VIAL ONE (10:08)
[2022-04-29] MEDS ORDERED: Ondansetron PF 4 MG/2 ML Vial ONE (10:08)
[2022-04-29] MEDS ORDERED: PROPOFOL 200 MG/20 ML VIAL ONE (10:08)
[2022-04-29] MEDS ORDERED: Fentanyl 100 MCG/2 ML VIAL ONE (10:19)
== END 2022-04-29 12:51 | disposition home or self-care (01) ==
LOC: SDC 06:02
PROVIDERS: ATTEND Urology
PROC: 0TBB8ZZ Excision of Bladder, Via Natural or Artificial Opening Endoscopic (ICD-10-PCS; principal; 2022-04-29)
PROC: 0V508ZZ Destruction of Prostate, Via Natural or Artificial Opening Endoscopic (ICD-10-PCS; 2022-04-29)
DX: N40.1 Benign prostatic hyperplasia with lower urinary tract symptoms (principal); N13.8 Other obstructive and reflux uropathy; D49.4 Neoplasm of unspecified behavior of bladder; N32.3 Diverticulum of bladder; I25.2 Old myocardial infarction; I25.10 Atherosclerotic heart disease of native coronary artery without angina pectoris; I11.0 Hypertensive heart disease with heart failure; I50.9 Heart failure, unspecified; Z79.02 Long term (current) use of antithrombotics/antiplatelets; Z79.82 Long term (current) use of aspirin; Z79.890 Hormone replacement therapy; Z79.899 Other long term (current) drug therapy; Z88.5 Allergy status to narcotic agent; Z95.1 Presence of aortocoronary bypass graft; Z95.5 Presence of coronary angioplasty implant and graft
CPT/HCPCS: J1956; J2405; J2704; J3010

== ENCOUNTER 2022-08-07 09:53 | Inpatient (IN) | payer MEDICARE ==
[2022-08-07 10:24] LABS: #Monocytes 0.8 thou/uL (0.11-0.59); #Neutrophils 14.6 thou/uL (1.40-6.50); %Basophils 0.2 % (0.0-1.0); %Eosinophils 0.2 % (0.0-10.0); %Lymphocytes 6.9 % (21.0-51.0); %Neutrophils 87.3 % (42.0-75.0); Hemoglobin 13.1 g/dL (14.0-18.0); Mean Corpuscular HGB CONC 33.9 g/dL (32.0-36.0); Mean Corpuscular Hemoglobin 35.2 pg (27.0-31.0); Mean Platelet Volume 9.7 fL (7.4-10.4); Platelet Count 187 10x3/uL (130-400); RBC Distribution Width 12.7 % (11.5-14.5); Red Blood Cell (RBC) Count 3.72 mill/uL (4.70-6.10); White Blood Cell (WBC) Count 16.8 10x3/uL (4.8-10.8)
[2022-08-07 10:48] LABS: ALT (SGPT) 15 U/L (8-55); AST (SGOT) 19 U/L (5-34); Albumin 3.9 g/dL (3.4-4.8); Alkaline Phosphatase 114 U/L (40-110); Anion Gap 10 mmol/L (10-20); BUN (Urea Nitrogen) 17 mg/dL (8.4-25.7); Calc. Creatinine Clearance 0 mL/min (70-130); Calcium 8.8 mg/dL (7.8-10.44); Carbon Dioxide 26 mmol/L (23-31); Chloride 106 mmol/L (98-107); Estimated GFR 58; Globulin 2.5 g/dL (2.4-3.5); Glucose 128 mg/dL (83-110); Potassium 4.8 mmol/L (3.5-5.1); Protein, Total 6.4 g/dL (5.8-8.1); Sodium 137 mmol/L (136-145)
[2022-08-07 10:52] LABS: Bilirubin Negative (Negative); Blood, Urine Negative (Negative); CAUTI Indications for Culture Dysuria,urgency,freq; Clarity Turbid (Clear); Glucose, Urine (Dipstick) Normal (Negative); Ketone, Urine Negative (Negative); Leukocyte 500 Leu/uL (Negative); Nitrite Negative (Negative); Protein, Urine (Dipstick) 10 mg/dL (Neg-Trace); RBC/HPF 0-3 HPF (0-3); Specific Gravity, Urine 1.019 (1.002-1.036); Squamous Epithelial 0-3 HPF (0-3); Urobilinogen Normal mg/dL (Less than 2); WBC/HPF Greater than 50 HPF (0-3); pH, Urine 6.5 (5.0-9.0)
[2022-08-07 10:53] LABS: Bacteria/HPF 1+ HPF (None Seen); Urine Culture Reflex Yes Yes
[2022-08-07] MEDS ORDERED: Ketorolac Tromethamine 30 MG/ML VIAL ONE (12:21)
[2022-08-07] MEDS ORDERED: Acetaminophen 500 MG TAB ONE (12:21)
[2022-08-07] MEDS ORDERED: Piperacillin/Tazobactam 4.5 GM VIAL ONE (12:21)
[2022-08-07] MEDS ORDERED: Ondansetron ODT 4 MG TAB PO PRN (12:44)
[2022-08-07] MEDS ORDERED: Acetaminophen 325 MG TAB PO PRN (12:44)
[2022-08-07] MEDS ORDERED: Ondansetron PF 4 MG/2 ML Vial IVP PRN (12:44)
[2022-08-07] MEDS ORDERED: Albuterol 200 PUFF (6.7GM INHALER) INH PRN (13:30)
[2022-08-07] MEDS: Sodium Chloride 0.9% 1,000 ML IV SCH ×2 (14:47→20:24)
[2022-08-07 15:00] VITALS: BMI 28.7
[2022-08-07] MEDS: Piperacillin/Tazobactam 3.375 GM in Sodium Chloride 0.9% 100 ML IVPB SCH ×2 (16:06→23:53)
[2022-08-07] MEDS: Atorvastatin Calcium 40 MG TAB PO SCH (20:23)
[2022-08-08] MEDS: Levothyroxine Sodium 25 MCG TAB PO SCH (06:01)
[2022-08-08 08:23] LABS: #Eosinphils 0.1 thou/uL (0.0-0.7); #Monocytes 1.3 thou/uL (0.11-0.59); #Neutrophils 12.8 thou/uL (1.40-6.50); %Basophils 0.2 % (0.0-1.0); %Eosinophils 0.4 % (0.0-10.0); %Lymphocytes 12.5 % (21.0-51.0); %Neutrophils 78.5 % (42.0-75.0); Hemoglobin 10.9 g/dL (14.0-18.0); Mean Corpuscular HGB CONC 33.3 g/dL (32.0-36.0); Mean Corpuscular Hemoglobin 34.8 pg (27.0-31.0); Mean Corpuscular Volume 104.5 fl (78.0-98.0); Mean Platelet Volume 10.2 fL (7.4-10.4); Platelet Count 148 10x3/uL (130-400); RBC Distribution Width 12.8 % (11.5-14.5); Red Blood Cell (RBC) Count 3.13 mill/uL (4.70-6.10); White Blood Cell (WBC) Count 16.3 10x3/uL (4.8-10.8)
[2022-08-08] MEDS: Losartan 25 MG TAB PO SCH (08:32)
[2022-08-08] MEDS: Aspirin 81 mg Enteric Coated Tablet PO SCH (08:32)
[2022-08-08] MEDS: Piperacillin/Tazobactam 3.375 GM in Sodium Chloride 0.9% 100 ML IVPB SCH (08:33)
[2022-08-08] MEDS: Ezetimibe 10 MG TAB PO SCH (08:33)
[2022-08-08 08:35] LABS: Anion Gap 11 mmol/L (10-20); BUN (Urea Nitrogen) 23 mg/dL (8.4-25.7); Calc. Creatinine Clearance 52 mL/min (70-130); Calcium 8.3 mg/dL (7.8-10.44); Carbon Dioxide 23 mmol/L (23-31); Chloride 109 mmol/L (98-107); Estimated GFR 49; Glucose 122 mg/dL (83-110); Potassium 4.2 mmol/L (3.5-5.1); Sodium 139 mmol/L (136-145)
[2022-08-08] MEDS: Ampicillin 2 GM in Sodium Chloride 0.9% 100 ML IVPB SCH ×2 (16:16→21:15)
[2022-08-08] MEDS: Sodium Chloride 0.9% 1,000 ML IV SCH ×2 (18:21→19:41)
[2022-08-08] MEDS: Atorvastatin Calcium 40 MG TAB PO SCH (19:42)
[2022-08-09] MEDS: Ampicillin 2 GM in Sodium Chloride 0.9% 100 ML IVPB SCH ×4 (03:55→20:20)
[2022-08-09] MEDS: Levothyroxine Sodium 25 MCG TAB PO SCH (05:44)
[2022-08-09] MEDS: Sodium Chloride 0.9% 1,000 ML IV SCH ×2 (05:48→23:25)
[2022-08-09 07:00] LABS: #Eosinphils 0.1 thou/uL (0.0-0.7); #Neutrophils 8.2 thou/uL (1.40-6.50); %Basophils 0.2 % (0.0-1.0); %Eosinophils 0.9 % (0.0-10.0); %Lymphocytes 19.1 % (21.0-51.0); %Monocytes 8.6 % (0.0-10.0); %Neutrophils 70.9 % (42.0-75.0); Hemoglobin 11.3 g/dL (14.0-18.0); Mean Corpuscular HGB CONC 32.6 g/dL (32.0-36.0); Mean Corpuscular Hemoglobin 34.1 pg (27.0-31.0); Mean Corpuscular Volume 104.8 fl (78.0-98.0); Mean Platelet Volume 10.1 fL (7.4-10.4); Platelet Count 152 10x3/uL (130-400); RBC Distribution Width 12.7 % (11.5-14.5); Red Blood Cell (RBC) Count 3.31 mill/uL (4.70-6.10); White Blood Cell (WBC) Count 11.6 10x3/uL (4.8-10.8)
[2022-08-09 07:23] LABS: Anion Gap 10 mmol/L (10-20); BUN (Urea Nitrogen) 15 mg/dL (8.4-25.7); Calc. Creatinine Clearance 60 mL/min (70-130); Calcium 8.5 mg/dL (7.8-10.44); Carbon Dioxide 26 mmol/L (23-31); Chloride 109 mmol/L (98-107); Estimated GFR 57; Glucose 109 mg/dL (83-110); Potassium 4.6 mmol/L (3.5-5.1); Sodium 140 mmol/L (136-145)
[2022-08-09] MEDS: Aspirin 81 mg Enteric Coated Tablet PO SCH (09:37)
[2022-08-09] MEDS: Losartan 25 MG TAB PO SCH (09:37)
[2022-08-09] MEDS: Ezetimibe 10 MG TAB PO SCH (09:37)
[2022-08-09] MEDS: Atorvastatin Calcium 40 MG TAB PO SCH (20:19)
[2022-08-10] MEDS: Ampicillin 2 GM in Sodium Chloride 0.9% 100 ML IVPB SCH ×2 (03:32→09:54)
[2022-08-10] MEDS: Sodium Chloride 0.9% 1,000 ML IV SCH (03:33)
[2022-08-10] MEDS: Levothyroxine Sodium 25 MCG TAB PO SCH (05:39)
[2022-08-10 07:01] LABS: #Eosinphils 0.1 thou/uL (0.0-0.7); #Monocytes 0.8 thou/uL (0.11-0.59); #Neutrophils 8.1 thou/uL (1.40-6.50); %Basophils 0.3 % (0.0-1.0); %Lymphocytes 18.2 % (21.0-51.0); %Monocytes 7.3 % (0.0-10.0); Hemoglobin 11.1 g/dL (14.0-18.0); Mean Corpuscular HGB CONC 33.5 g/dL (32.0-36.0); Mean Corpuscular Hemoglobin 34.5 pg (27.0-31.0); Mean Corpuscular Volume 102.8 fl (78.0-98.0); Platelet Count 162 10x3/uL (130-400); RBC Distribution Width 12.6 % (11.5-14.5); Red Blood Cell (RBC) Count 3.22 mill/uL (4.70-6.10); White Blood Cell (WBC) Count 11.1 10x3/uL (4.8-10.8)
[2022-08-10 07:26] LABS: Anion Gap 7 mmol/L (10-20); BUN (Urea Nitrogen) 12 mg/dL (8.4-25.7); Calc. Creatinine Clearance 69 mL/min (70-130); Calcium 8.4 mg/dL (7.8-10.44); Carbon Dioxide 27 mmol/L (23-31); Chloride 108 mmol/L (98-107); Estimated GFR 68; Glucose 104 mg/dL (83-110); Potassium 3.9 mmol/L (3.5-5.1); Sodium 138 mmol/L (136-145)
[2022-08-10] MEDS: Aspirin 81 mg Enteric Coated Tablet PO SCH (09:53)
[2022-08-10] MEDS: Ezetimibe 10 MG TAB PO SCH (09:54)
[2022-08-10] MEDS: Losartan 25 MG TAB PO SCH (09:54)
[2022-08-10 13:23] VITALS: BP 135/69; TEMP 98.7
== END 2022-08-10 15:27 | disposition home or self-care (01) | DRG 872 ==
LOC: ERS 09:53 → T4-A 14:45
PROVIDERS: ADMIT Internal Medicine; ATTEND Internal Medicine
DX: A41.81 Sepsis due to Enterococcus (principal); N39.0 Urinary tract infection, site not specified; N13.8 Other obstructive and reflux uropathy; E78.5 Hyperlipidemia, unspecified; I10 Essential (primary) hypertension; I25.10 Atherosclerotic heart disease of native coronary artery without angina pectoris; E03.9 Hypothyroidism, unspecified; N40.1 Benign prostatic hyperplasia with lower urinary tract symptoms; G47.33 Obstructive sleep apnea (adult) (pediatric); N45.3 Epididymo-orchitis; Z98.890 Other specified postprocedural states; I25.2 Old myocardial infarction; Z95.1 Presence of aortocoronary bypass graft; Z87.440 Personal history of urinary (tract) infections; Z88.5 Allergy status to narcotic agent; Z88.8 Allergy status to other drugs, medicaments and biological substances; Z79.899 Other long term (current) drug therapy; Z79.82 Long term (current) use of aspirin
CPT/HCPCS: 36415; 36416; 76870; 80048; 80053; 81001; 83605; 84443; 85025; 87040; 87077; 87086; 87186; 93976; 96365; 96375; J0290; J1885; J2543; J3490; J7050

== ENCOUNTER 2022-09-03 06:09 | Day surgery (SDC) | payer MEDICARE ==
[2022-08-23 13:06] VITALS: BMI 28.7
[2022-09-03] MEDS ORDERED: Triamcinolone 40 MG/ML VIAL ONE (08:25)
[2022-09-03] MEDS ORDERED: fentaNYL PF 100 MCG/2 ML SYRINGE ONE (08:32)
[2022-09-03] MEDS ORDERED: Lidocaine 1% PF 5 ML VIAL ONE (08:37)
[2022-09-03] MEDS ORDERED: Levofloxacin 500 mg/D5W 100 ml Premix Bag ONE (08:37)
[2022-09-03] MEDS ORDERED: PROPOFOL 200 MG/20 ML VIAL ONE (08:37)
[2022-09-03] MEDS ORDERED: ePHEDrine Sulfate 50 MG/10 ML VIAL ONE (08:37)
[2022-09-03] MEDS ORDERED: Ondansetron PF 4 MG/2 ML Vial ONE (08:37)
[2022-09-03] MEDS ORDERED: PHENYLEPHRINE-NS 100 MCG/ML 10 ML SYRINGE ONE (08:37)
[2022-09-03] MEDS ORDERED: Oxybutynin 5 MG TAB ONE (11:21)
== END 2022-09-03 11:23 | disposition home or self-care (01) ==
LOC: SDC 06:09
PROVIDERS: ATTEND Urology
PROC: 0T7D8ZZ Dilation of Urethra, Via Natural or Artificial Opening Endoscopic (ICD-10-PCS; principal; 2022-09-03)
DX: N35.912 Unspecified bulbous urethral stricture, male (principal); I25.10 Atherosclerotic heart disease of native coronary artery without angina pectoris; E78.00 Pure hypercholesterolemia, unspecified; N40.1 Benign prostatic hyperplasia with lower urinary tract symptoms; R39.14 Feeling of incomplete bladder emptying; Z87.891 Personal history of nicotine dependence; Z88.6 Allergy status to analgesic agent; Z96.641 Presence of right artificial hip joint; Z85.51 Personal history of malignant neoplasm of bladder; Z79.82 Long term (current) use of aspirin; Z79.899 Other long term (current) drug therapy
CPT/HCPCS: J1956; J2405; J2704; J3301

== ENCOUNTER 2022-09-26 17:08 | Emergency (ER) | payer MEDICARE ==
[2022-09-26 18:27] LABS: #Monocytes 1.1 thou/uL (0.11-0.59); #Neutrophils 8.7 thou/uL (1.40-6.50); %Basophils 0.1 % (0.0-1.0); %Eosinophils 0.2 % (0.0-10.0); %Monocytes 9.8 % (0.0-10.0); %Neutrophils 79.6 % (42.0-75.0); Hemoglobin 10.1 g/dL (14.0-18.0); Mean Corpuscular HGB CONC 32.7 g/dL (32.0-36.0); Mean Corpuscular Hemoglobin 34.9 pg (27.0-31.0); Mean Corpuscular Volume 106.9 fl (78.0-98.0); Mean Platelet Volume 10.1 fL (7.4-10.4); Platelet Count 177 10x3/uL (130-400); RBC Distribution Width 12.4 % (11.5-14.5); Red Blood Cell (RBC) Count 2.89 mill/uL (4.70-6.10); White Blood Cell (WBC) Count 10.9 10x3/uL (4.8-10.8)
[2022-09-26 18:50] LABS: ALT (SGPT) 19 U/L (8-55); AST (SGOT) 19 U/L (5-34); Albumin 3.6 g/dL (3.4-4.8); Alkaline Phosphatase 86 U/L (40-110); Anion Gap 12 mmol/L (10-20); BUN (Urea Nitrogen) 17 mg/dL (8.4-25.7); Bilirubin, Total 0.9 mg/dL (0.2-1.2); Calc. Creatinine Clearance 0 mL/min (70-130); Calcium 8.5 mg/dL (7.8-10.44); Carbon Dioxide 23 mmol/L (23-31); Chloride 106 mmol/L (98-107); Estimated GFR 58; Globulin 2.5 g/dL (2.4-3.5); Glucose 102 mg/dL (83-110); Potassium 4.3 mmol/L (3.5-5.1); Protein, Total 6.1 g/dL (5.8-8.1); Sodium 137 mmol/L (136-145)
[2022-09-26] MEDS ORDERED: Dicyclomine 20 MG TAB ONE (18:53)
[2022-09-26] MEDS ORDERED: Acetaminophen 500 MG TAB ONE (18:53)
== END 2022-09-26 19:58 | disposition home or self-care (01) ==
LOC: ERS 17:08
DX: U07.1 COVID-19 (principal); E78.5 Hyperlipidemia, unspecified; I10 Essential (primary) hypertension; Z79.899 Other long term (current) drug therapy
CPT/HCPCS: 36415; 71045; 80053; 83605; 83880; 84484; 85025; 93005; 96360

== ENCOUNTER 2024-01-26 00:20 | Inpatient (IN) | payer MEDICARE ==
[2024-01-27 00:40] VITALS: BMI 29.2
[2024-01-27] MEDS ORDERED: Acetaminophen 500 MG TAB PO PRN (01:55)
[2024-01-27 04:26] LABS: #Basophils Less than 0.03 10x3/uL (0.0-0.2); %Basophils 0.2 % (0.0-1.0); %Eosinophils 2.8 % (0.0-10.0); %Lymphocytes 18.8 % (21.0-51.0); %Monocytes 12.3 % (0.0-10.0); %Neutrophils 65.7 % (42.0-75.0); Hematocrit 27.6 % (42.0-52.0); Hemoglobin 8.8 g/dL (14.0-18.0); Mean Corpuscular HGB CONC 31.9 g/dL (32.0-36.0); Mean Corpuscular Hemoglobin 33.3 pg (27.0-31.0); Mean Corpuscular Volume 104.5 fL (78.0-98.0); Mean Platelet Volume 9.7 fL (7.4-10.4); Platelet Count 201 10x3/uL (130-400); RBC Distribution Width 13.5 % (11.5-14.5); Red Blood Cell (RBC) Count 2.64 mill/uL (4.70-6.10)
[2024-01-27 05:06] LABS: ALT (SGPT) 13 U/L (8-55); AST (SGOT) 30 U/L (5-34); Albumin 2.7 g/dL (3.4-4.8); Alkaline Phosphatase 85 U/L (40-110); Anion Gap 12 mmol/L (10-20); BUN (Urea Nitrogen) 15 mg/dL (8.4-25.7); Bilirubin, Total 0.4 mg/dL (0.2-1.2); Calc. Creatinine Clearance 47 mL/min (70-130); Calcium 8.3 mg/dL (7.8-10.44); Carbon Dioxide 22 mmol/L (23-31); Chloride 107 mmol/L (98-107); Estimated GFR 43; Glucose 88 mg/dL (83-110); Potassium 3.9 mmol/L (3.5-5.1); Protein, Total 5.7 g/dL (5.8-8.1); Sodium 137 mmol/L (136-145)
[2024-01-27] MEDS ORDERED: Non-Formulary Item 1 EACH (Carboxymethylcellulos/Glycerin [Refresh Optive Eye Drops] 15 M EA EYE PRN (07:52)
[2024-01-27] MEDS ORDERED: Calcium Carbonate 500 MG ChewTAB PO PRN (07:55)
[2024-01-27] MEDS ORDERED: Atorvastatin Calcium 40 MG TAB PO SCH (09:00)
[2024-01-27] MEDS: cefTRIAXone\\ROCEPHIN 2 GM in Sodium Chloride 0.9% 100 ML IVPB SCH (09:42)
[2024-01-27] MEDS ORDERED: Polyvinyl Alcohol 1.4%/Povidone 0.6% Opth Drops EA EYE PRN (10:27)
[2024-01-27] MEDS: Metoprolol Tartrate 25 MG TAB PO SCH (12:06)
[2024-01-27] MEDS: Senokot S 8.6-50 MG TAB PO SCH (12:07)
[2024-01-27] MEDS: Ranolazine ER 500 MG TAB PO SCH (12:08)
[2024-01-27] MEDS: Ezetimibe 10 MG TAB PO SCH (12:08)
[2024-01-27] MEDS: Aspirin 81 mg Enteric Coated Tablet PO SCH (12:08)
[2024-01-27] MEDS: Sodium Chloride 0.9% 1,000 ML IV SCH (12:43)
[2024-01-27] MEDS ORDERED: Polyethylene Glycol 3350 17 GM Packet PO PRN (17:42)
[2024-01-27] MEDS: Pramipexole Di-HCl 0.125 MG TAB PO SCH ×2 (17:46→20:10)
[2024-01-27] MEDS: Acetaminophen 325 MG TAB PO PRN (19:24)
[2024-01-27] MEDS: Heparin 5,000 UNITS/ML VIAL SC SCH (20:06)
[2024-01-27] MEDS: Cholecalciferol 1,000 UNITS (25 MCG) TAB PO SCH (20:06)
[2024-01-27] MEDS: Cyanocobalamin (Vitamin B-12) 1,000 MCG TAB PO SCH (20:06)
[2024-01-27] MEDS: Multivit, Therapeutic 1 TAB PO SCH (20:08)
[2024-01-27] MEDS: Saccharomyces boulardii 250 MG CAP PO SCH (20:12)
[2024-01-28] MEDS: Levothyroxine Sodium 50 MCG TAB PO SCH (06:16)
[2024-01-28 06:24] LABS: #Basophils Less than 0.03 10x3/uL (0.0-0.2); %Basophils 0.2 % (0.0-1.0); %Lymphocytes 17.2 % (21.0-51.0); %Monocytes 12.1 % (0.0-10.0); %Neutrophils 66.2 % (42.0-75.0); Hematocrit 28.5 % (42.0-52.0); Hemoglobin 8.9 g/dL (14.0-18.0); Mean Corpuscular HGB CONC 31.2 g/dL (32.0-36.0); Mean Corpuscular Hemoglobin 33.3 pg (27.0-31.0); Mean Corpuscular Volume 106.7 fL (78.0-98.0); Mean Platelet Volume 9.5 fL (7.4-10.4); Platelet Count 213 10x3/uL (130-400); RBC Distribution Width 13.5 % (11.5-14.5); Red Blood Cell (RBC) Count 2.67 mill/uL (4.70-6.10)
[2024-01-28 06:49] LABS: ALT (SGPT) 19 U/L (8-55); AST (SGOT) 38 U/L (5-34); Albumin 2.6 g/dL (3.4-4.8); Alkaline Phosphatase 78 U/L (40-110); Anion Gap 11 mmol/L (10-20); BUN (Urea Nitrogen) 13 mg/dL (8.4-25.7); Bilirubin, Total 0.4 mg/dL (0.2-1.2); Calc. Creatinine Clearance 62 mL/min (70-130); Calcium 8.2 mg/dL (7.8-10.44); Carbon Dioxide 21 mmol/L (23-31); Chloride 110 mmol/L (98-107); Estimated GFR 61; Globulin 3.3 g/dL (2.4-3.5); Glucose 99 mg/dL (83-110); Magnesium 1.9 mg/dL (1.6-2.6); Potassium 3.9 mmol/L (3.5-5.1); Protein, Total 5.9 g/dL (5.8-8.1); Sodium 138 mmol/L (136-145)
[2024-01-28] MEDS: Atorvastatin Calcium 40 MG TAB PO SCH (10:17)
[2024-01-28] MEDS: Clotrimazole 1 % Cream 30 GM TUBE TOP SCH (20:52)
[2024-01-29 09:53] LABS: #Basophils Less than 0.03 10x3/uL (0.0-0.2); %Basophils 0.3 % (0.0-1.0); %Eosinophils 3.6 % (0.0-10.0); %Lymphocytes 24.6 % (21.0-51.0); %Neutrophils 61.1 % (42.0-75.0); Hematocrit 27.1 % (42.0-52.0); Hemoglobin 8.7 g/dL (14.0-18.0); Mean Corpuscular HGB CONC 32.1 g/dL (32.0-36.0); Mean Corpuscular Hemoglobin 33.5 pg (27.0-31.0); Mean Corpuscular Volume 104.2 fL (78.0-98.0); Mean Platelet Volume 9.5 fL (7.4-10.4); Platelet Count 235 10x3/uL (130-400); RBC Distribution Width 13.3 % (11.5-14.5)
[2024-01-29 10:13] LABS: Anion Gap 12 mmol/L (10-20); BUN (Urea Nitrogen) 21 mg/dL (8.4-25.7); Calc. Creatinine Clearance 72 mL/min (70-130); Calcium 8.4 mg/dL (7.8-10.44); Carbon Dioxide 22 mmol/L (23-31); Chloride 107 mmol/L (98-107); Estimated GFR 73; Glucose 100 mg/dL (83-110); Magnesium 1.9 mg/dL (1.6-2.6); Potassium 4.4 mmol/L (3.5-5.1); Sodium 137 mmol/L (136-145)
[2024-01-29] MEDS ORDERED: HYDROcodone/Acetaminophen 5/325 mg Tablet PO PRN (13:27)
[2024-01-29] MEDS: traMADol HCl 50 MG TAB PO PRN (15:00)
[2024-01-29] MEDS: Nystatin Powder 15 GM BOT TOP PRN (15:01)
[2024-01-30 01:37] LABS: Troponin I 0.014 ng/mL (< 0.028)
[2024-01-30 04:15] LABS: #Basophils Less than 0.03 10x3/uL (0.0-0.2); %Basophils 0.2 % (0.0-1.0); %Eosinophils 5.3 % (0.0-10.0); %Lymphocytes 23.6 % (21.0-51.0); %Monocytes 8.5 % (0.0-10.0); Hemoglobin 7.5 g/dL (14.0-18.0); Mean Corpuscular HGB CONC 31.3 g/dL (32.0-36.0); Mean Corpuscular Hemoglobin 33.3 pg (27.0-31.0); Mean Corpuscular Volume 106.7 fL (78.0-98.0); Mean Platelet Volume 9.4 fL (7.4-10.4); Platelet Count 236 10x3/uL (130-400); RBC Distribution Width 13.3 % (11.5-14.5); Red Blood Cell (RBC) Count 2.25 mill/uL (4.70-6.10)
[2024-01-30 04:40] LABS: Anion Gap 13 mmol/L (10-20); BUN (Urea Nitrogen) 21 mg/dL (8.4-25.7); Calc. Creatinine Clearance 74 mL/min (70-130); Calcium 8.4 mg/dL (7.8-10.44); Carbon Dioxide 21 mmol/L (23-31); Chloride 105 mmol/L (98-107); Estimated GFR 75; Glucose 99 mg/dL (83-110); Magnesium 1.8 mg/dL (1.6-2.6); Potassium 3.7 mmol/L (3.5-5.1); Sodium 135 mmol/L (136-145)
[2024-01-30] MEDS: Fluconazole 100 MG TAB PO SCH (13:07)
[2024-01-30] MEDS: Betamethasone Val 0.1% OINT 15 GM TUBE TOP PRN (14:17)
[2024-01-31 06:15] LABS: #Basophils Less than 0.03 10x3/uL (0.0-0.2); %Basophils 0.2 % (0.0-1.0); %Eosinophils 7.6 % (0.0-10.0); %Lymphocytes 29.2 % (21.0-51.0); %Monocytes 8.6 % (0.0-10.0); Hematocrit 21.9 % (42.0-52.0); Mean Corpuscular Hemoglobin 33.8 pg (27.0-31.0); Mean Corpuscular Volume 105.8 fL (78.0-98.0); Mean Platelet Volume 9.4 fL (7.4-10.4); Platelet Count 241 10x3/uL (130-400); RBC Distribution Width 13.4 % (11.5-14.5); Red Blood Cell (RBC) Count 2.07 mill/uL (4.70-6.10)
[2024-01-31 06:31] LABS: Anion Gap 10 mmol/L (10-20); BUN (Urea Nitrogen) 15 mg/dL (8.4-25.7); Calc. Creatinine Clearance 73 mL/min (70-130); Calcium 8.4 mg/dL (7.8-10.44); Carbon Dioxide 25 mmol/L (23-31); Chloride 104 mmol/L (98-107); Estimated GFR 73; Glucose 102 mg/dL (83-110); Magnesium 1.9 mg/dL (1.6-2.6); Potassium 3.9 mmol/L (3.5-5.1); Sodium 135 mmol/L (136-145)
[2024-01-31 11:58] VITALS: BP 130/66; TEMP 97.8
== END 2024-01-31 13:00 | disposition home or self-care (01) | DRG 872 ==
LOC: 2NO 00:20 → OBSVTOIN 01-27 01:06 → T4-B 01-28 15:08
PROVIDERS: ADMIT Student in an Organized Health Care Education/Training Program; ATTEND Hospitalist
DX: A41.51 Sepsis due to Escherichia coli [E. coli] (principal); M87.852 Other osteonecrosis, left femur; N17.9 Acute kidney failure, unspecified; N10 Acute pyelonephritis; R65.20 Severe sepsis without septic shock; N48.1 Balanitis; N40.0 Benign prostatic hyperplasia without lower urinary tract symptoms; I25.10 Atherosclerotic heart disease of native coronary artery without angina pectoris; I12.9 Hypertensive chronic kidney disease with stage 1 through stage 4 chronic kidney disease, or unspecified chronic kidney disease; N18.30 Chronic kidney disease, stage 3 unspecified; D64.9 Anemia, unspecified; Z88.8 Allergy status to other drugs, medicaments and biological substances; Z88.5 Allergy status to narcotic agent
CPT/HCPCS: 36415; 74176; 76770; 80048; 80053; 83735; 84484; 85025; 93005; 93010; J0696; J1644; J7030

== ENCOUNTER 2025-01-22 01:45 | Inpatient (IN) | payer MEDICARE, OTHER ==
[2025-01-22 07:52] VITALS: BMI 28.3
[2025-01-22] MEDS ORDERED: Ondansetron PF 4 MG/2 ML Vial IVP PRN (10:06)
[2025-01-22] MEDS ORDERED: Vancomycin 1 GM in Premix 1 BAG IVPB SCH (10:15)
[2025-01-22 10:24] LABS: #Basophils 0.04 10x3/uL (0.0-0.2); #Eosinophils 0.28 10x3/uL (0.0-0.7); #Monocytes 0.72 10x3/uL (0.11-0.59); #Neutrophils 15.40 10x3/uL (1.40-6.50); %Basophils 0.2 % (0.0-1.0); %Eosinophils 1.6 % (0.0-10.0); %Lymphocytes 7.3 % (21.0-51.0); %Monocytes 4.0 % (0.0-10.0); %Neutrophils 86.4 % (42.0-75.0); Hematocrit 25.1 % (42.0-52.0); Hemoglobin 7.8 g/dL (14.0-18.0); Mean Corpuscular Hemoglobin 32.1 pg (27.0-31.0); Mean Corpuscular Volume 103.3 fL (78.0-98.0); Platelet Count 394 10x3/uL (130-400); Red Blood Cell (RBC) Count 2.43 mill/uL (4.70-6.10); White Blood Cell (WBC) Count 17.83 10x3/uL (4.8-10.8)
[2025-01-22 10:41] LABS: ALT (SGPT) 380 U/L (Less than 45); AST (SGOT) 1505 U/L (11-34); Albumin 2.3 g/dL (3.1-4.5); Alkaline Phosphatase 87 U/L (40-110); Anion Gap 12 mmol/L (10-20); BUN (Urea Nitrogen) 14 mg/dL (8.4-25.7); Bilirubin, Total 0.6 mg/dL (0.3-1.2); Calc. Creatinine Clearance 63 mL/min (70-130); Calcium 8.1 mg/dL (7.8-10.44); Carbon Dioxide 23 mmol/L (23-31); Chloride 106 mmol/L (98-107); Globulin 3.6 g/dL (2.4-3.5); Glucose 99 mg/dL (83-110); Potassium 4.2 mmol/L (3.5-5.1); Sodium 137 mmol/L (136-145)
[2025-01-22] MEDS: Mupirocin 1 GM TUBE TP SCH (10:47)
[2025-01-22] MEDS: VANCOMYCIN 2 GRAM/400 ML BAG 2 GM in Premix 1 BAG IVPB SCH (10:48)
[2025-01-22] MEDS: Enoxaparin 40 MG (0.4 mL) SYRINGE SC SCH (22:55)
[2025-01-23 03:27] LABS: #Basophils Less than 0.03 10x3/uL (0.0-0.2); #Eosinophils 0.29 10x3/uL (0.0-0.7); #Monocytes 0.65 10x3/uL (0.11-0.59); #Neutrophils 10.73 10x3/uL (1.40-6.50); %Basophils 0.1 % (0.0-1.0); %Eosinophils 2.2 % (0.0-10.0); %Lymphocytes 11.5 % (21.0-51.0); %Monocytes 4.9 % (0.0-10.0); %Neutrophils 80.8 % (42.0-75.0); Hematocrit 22.3 % (42.0-52.0); Hemoglobin 6.9 g/dL (14.0-18.0); Mean Corpuscular Hemoglobin 32.2 pg (27.0-31.0); Mean Corpuscular Volume 104.2 fL (78.0-98.0); Platelet Count 364 10x3/uL (130-400); Red Blood Cell (RBC) Count 2.14 mill/uL (4.70-6.10); White Blood Cell (WBC) Count 13.27 10x3/uL (4.8-10.8)
[2025-01-23 03:42] LABS: Vancomycin, Random 18.2 ug/mL (See Comment)
[2025-01-23 04:11] LABS: Anion Gap 12 mmol/L (10-20); BUN (Urea Nitrogen) 13 mg/dL (8.4-25.7); Calc. Creatinine Clearance 67 mL/min (70-130); Calcium 8.1 mg/dL (7.8-10.44); Carbon Dioxide 23 mmol/L (23-31); Chloride 111 mmol/L (98-107); Glucose 117 mg/dL (83-110); Potassium 3.6 mmol/L (3.5-5.1); Sodium 142 mmol/L (136-145)
[2025-01-23] MEDS ORDERED: Electrolyte Replacement Protocol 1 EACH FS ONE (08:15)
[2025-01-23] MEDS ORDERED: PHOS-NAK 1 PKT PACK PO PRN (08:30)
[2025-01-23] MEDS ORDERED: Potassium Chloride 20 MEQ in Premix 1 BAG IVPB PRN (08:30)
[2025-01-23] MEDS ORDERED: Magnesium 2 GM/50 ML(in water) 2 GM in Premix 1 BAG IVPB PRN (08:30)
[2025-01-23] MEDS: Aspirin 81 mg Enteric Coated Tablet PO SCH (09:40)
[2025-01-23] MEDS ORDERED: Vancomycin 1.5 GM / NS 500ML VIAL-2-BAG IVPB SCH (10:00)
[2025-01-23] MEDS: Furosemide 40 MG (4 mL) VIAL SLOW IVP SCH (10:45)
[2025-01-23 10:56] LABS: #Basophils Less than 0.03 10x3/uL (0.0-0.2); #Eosinophils 0.21 10x3/uL (0.0-0.7); #Monocytes 0.61 10x3/uL (0.11-0.59); #Neutrophils 8.93 10x3/uL (1.40-6.50); %Basophils 0.2 % (0.0-1.0); %Eosinophils 1.9 % (0.0-10.0); %Lymphocytes 10.2 % (21.0-51.0); %Monocytes 5.6 % (0.0-10.0); %Neutrophils 81.7 % (42.0-75.0); Hematocrit 25.4 % (42.0-52.0); Hemoglobin 8.1 g/dL (14.0-18.0); Mean Corpuscular Hemoglobin 32.3 pg (27.0-31.0); Mean Corpuscular Volume 101.2 fL (78.0-98.0); Platelet Count 355 10x3/uL (130-400); Red Blood Cell (RBC) Count 2.51 mill/uL (4.70-6.10); White Blood Cell (WBC) Count 10.92 10x3/uL (4.8-10.8)
[2025-01-23] MEDS: Vancomycin 1.25 GM / NS 250 ML VIAL-2-BAG IVPB SCH (17:50)
[2025-01-23] MEDS ORDERED: Enoxaparin 40 MG (0.4 mL) SYRINGE SC SCH (21:00)
[2025-01-24 04:58] LABS: #Basophils 0.03 10x3/uL (0.0-0.2); #Eosinophils 0.12 10x3/uL (0.0-0.7); #Monocytes 0.61 10x3/uL (0.11-0.59); #Neutrophils 8.50 10x3/uL (1.40-6.50); %Basophils 0.3 % (0.0-1.0); %Eosinophils 1.2 % (0.0-10.0); %Lymphocytes 9.4 % (21.0-51.0); %Monocytes 5.9 % (0.0-10.0); %Neutrophils 82.7 % (42.0-75.0); Hematocrit 25.1 % (42.0-52.0); Hemoglobin 7.8 g/dL (14.0-18.0); Mean Corpuscular Hemoglobin 31.2 pg (27.0-31.0); Mean Corpuscular Volume 100.4 fL (78.0-98.0); Platelet Count 340 10x3/uL (130-400); Red Blood Cell (RBC) Count 2.50 mill/uL (4.70-6.10); White Blood Cell (WBC) Count 10.28 10x3/uL (4.8-10.8)
[2025-01-24 05:26] LABS: ALT (SGPT) 337 U/L (Less than 45); AST (SGOT) 910 U/L (11-34); Albumin 2.2 g/dL (3.1-4.5); Alkaline Phosphatase 79 U/L (40-110); Anion Gap 12 mmol/L (10-20); BUN (Urea Nitrogen) 13 mg/dL (8.4-25.7); Bilirubin, Total 0.7 mg/dL (0.3-1.2); Calc. Creatinine Clearance 72 mL/min (70-130); Calcium 8.1 mg/dL (7.8-10.44); Carbon Dioxide 25 mmol/L (23-31); Chloride 110 mmol/L (98-107); Globulin 3.3 g/dL (2.4-3.5); Glucose 103 mg/dL (83-110); Potassium 3.2 mmol/L (3.5-5.1); Sodium 144 mmol/L (136-145)
[2025-01-24 05:41] LABS: CK (CPK) 13190 U/L (30-200)
[2025-01-24] MEDS: Pantoprazole 40 MG DR.TAB PO SCH (08:17)
[2025-01-24] MEDS: Metoprolol Succinate XL 25 MG ER.TAB PO SCH (08:22)
[2025-01-24] MEDS: Losartan 25 MG TAB PO SCH (08:22)
[2025-01-24 13:27] LABS: Potassium 3.5 mmol/L (3.5-5.1)
[2025-01-24] MEDS: Vancomycin 1.25 GM / NS 250 ML VIAL-2-BAG IVPB SCH (16:35)
[2025-01-24] MEDS: Furosemide 40 MG (4 mL) VIAL SLOW IVP SCH (16:35)
[2025-01-24 23:26] LABS: Potassium 3.7 mmol/L (3.5-5.1)
[2025-01-25 03:42] LABS: #Basophils Less than 0.03 10x3/uL (0.0-0.2); #Eosinophils 0.34 10x3/uL (0.0-0.7); #Monocytes 0.75 10x3/uL (0.11-0.59); #Neutrophils 5.05 10x3/uL (1.40-6.50); %Basophils 0.3 % (0.0-1.0); %Eosinophils 4.5 % (0.0-10.0); %Lymphocytes 18.2 % (21.0-51.0); %Monocytes 9.9 % (0.0-10.0); %Neutrophils 66.7 % (42.0-75.0); Hematocrit 26.0 % (42.0-52.0); Hemoglobin 7.9 g/dL (14.0-18.0); Mean Corpuscular Hemoglobin 31.3 pg (27.0-31.0); Mean Corpuscular Volume 103.2 fL (78.0-98.0); Platelet Count 368 10x3/uL (130-400); Red Blood Cell (RBC) Count 2.52 mill/uL (4.70-6.10); White Blood Cell (WBC) Count 7.57 10x3/uL (4.8-10.8)
[2025-01-25 03:57] LABS: Vancomycin, Random 19.8 ug/mL (See Comment)
[2025-01-25 04:17] LABS: ALT (SGPT) 273 U/L (Less than 45); AST (SGOT) 512 U/L (11-34); Albumin 2.2 g/dL (3.1-4.5); Alkaline Phosphatase 80 U/L (40-110); Anion Gap 12 mmol/L (10-20); BUN (Urea Nitrogen) 15 mg/dL (8.4-25.7); Bilirubin, Total 0.6 mg/dL (0.3-1.2); Calc. Creatinine Clearance 75 mL/min (70-130); Calcium 8.3 mg/dL (7.8-10.44); Carbon Dioxide 26 mmol/L (23-31); Chloride 111 mmol/L (98-107); Globulin 3.3 g/dL (2.4-3.5); Glucose 100 mg/dL (83-110); Potassium 3.5 mmol/L (3.5-5.1); Sodium 145 mmol/L (136-145)
[2025-01-25 04:33] LABS: CK (CPK) 5163 U/L (30-200)
[2025-01-25 09:48] LABS: Potassium 3.6 mmol/L (3.5-5.1)
[2025-01-25] MEDS ORDERED: Furosemide 20 MG (2 mL) VIAL SLOW IVP PRN (12:00)
[2025-01-25] MEDS: Melatonin 3 MG TAB PO PRN (21:22)
[2025-01-26 04:26] LABS: #Basophils 0.03 10x3/uL (0.0-0.2); #Eosinophils 0.39 10x3/uL (0.0-0.7); #Monocytes 0.81 10x3/uL (0.11-0.59); #Neutrophils 5.13 10x3/uL (1.40-6.50); %Basophils 0.4 % (0.0-1.0); %Eosinophils 4.8 % (0.0-10.0); %Lymphocytes 20.5 % (21.0-51.0); %Monocytes 10.0 % (0.0-10.0); %Neutrophils 63.7 % (42.0-75.0); Hematocrit 25.7 % (42.0-52.0); Hemoglobin 7.9 g/dL (14.0-18.0); Mean Corpuscular Hemoglobin 31.9 pg (27.0-31.0); Mean Corpuscular Volume 103.6 fL (78.0-98.0); Platelet Count 325 10x3/uL (130-400); Red Blood Cell (RBC) Count 2.48 mill/uL (4.70-6.10); White Blood Cell (WBC) Count 8.06 10x3/uL (4.8-10.8)
[2025-01-26 04:49] LABS: ALT (SGPT) 217 U/L (Less than 45); AST (SGOT) 262 U/L (11-34); Albumin 2.2 g/dL (3.1-4.5); Alkaline Phosphatase 88 U/L (40-110); Anion Gap 11 mmol/L (10-20); BUN (Urea Nitrogen) 18 mg/dL (8.4-25.7); Bilirubin, Total 0.5 mg/dL (0.3-1.2); CK (CPK) 1803 U/L (30-200); Calc. Creatinine Clearance 66 mL/min (70-130); Calcium 8.5 mg/dL (7.8-10.44); Carbon Dioxide 28 mmol/L (23-31); Chloride 111 mmol/L (98-107); Globulin 3.2 g/dL (2.4-3.5); Glucose 100 mg/dL (83-110); Potassium 4.0 mmol/L (3.5-5.1); Sodium 146 mmol/L (136-145)
[2025-01-26] MEDS: Apixaban 2.5 MG TAB PO SCH (09:49)
[2025-01-27 07:26] LABS: #Basophils 0.04 10x3/uL (0.0-0.2); #Eosinophils 0.29 10x3/uL (0.0-0.7); #Monocytes 0.59 10x3/uL (0.11-0.59); #Neutrophils 4.72 10x3/uL (1.40-6.50); %Basophils 0.6 % (0.0-1.0); %Eosinophils 4.1 % (0.0-10.0); %Lymphocytes 20.2 % (21.0-51.0); %Monocytes 8.3 % (0.0-10.0); %Neutrophils 66.1 % (42.0-75.0); Hematocrit 28.9 % (42.0-52.0); Hemoglobin 8.9 g/dL (14.0-18.0); Mean Corpuscular Hemoglobin 31.6 pg (27.0-31.0); Mean Corpuscular Volume 102.5 fL (78.0-98.0); Platelet Count 352 10x3/uL (130-400); Red Blood Cell (RBC) Count 2.82 mill/uL (4.70-6.10); White Blood Cell (WBC) Count 7.13 10x3/uL (4.8-10.8)
[2025-01-27 07:33] LABS: ALT (SGPT) 174 U/L (Less than 45); AST (SGOT) 141 U/L (11-34); Albumin 2.5 g/dL (3.1-4.5); Alkaline Phosphatase 88 U/L (40-110); Anion Gap 12 mmol/L (10-20); BUN (Urea Nitrogen) 15 mg/dL (8.4-25.7); Bilirubin, Total 0.5 mg/dL (0.3-1.2); CK (CPK) 654 U/L (30-200); Calc. Creatinine Clearance 76 mL/min (70-130); Calcium 8.5 mg/dL (7.8-10.44); Carbon Dioxide 25 mmol/L (23-31); Chloride 111 mmol/L (98-107); Globulin 3.5 g/dL (2.4-3.5); Glucose 100 mg/dL (83-110); Magnesium 2.0 mg/dL (1.6-2.6); Potassium 3.9 mmol/L (3.5-5.1); Sodium 144 mmol/L (136-145)
[2025-01-28 04:33] LABS: #Basophils 0.04 10x3/uL (0.0-0.2); #Eosinophils 0.35 10x3/uL (0.0-0.7); #Monocytes 0.95 10x3/uL (0.11-0.59); #Neutrophils 4.51 10x3/uL (1.40-6.50); %Basophils 0.5 % (0.0-1.0); %Eosinophils 4.6 % (0.0-10.0); %Lymphocytes 22.3 % (21.0-51.0); %Monocytes 12.5 % (0.0-10.0); %Neutrophils 59.4 % (42.0-75.0); Hematocrit 28.2 % (42.0-52.0); Hemoglobin 8.7 g/dL (14.0-18.0); Mean Corpuscular Hemoglobin 32.1 pg (27.0-31.0); Mean Corpuscular Volume 104.1 fL (78.0-98.0); Platelet Count 337 10x3/uL (130-400); Red Blood Cell (RBC) Count 2.71 mill/uL (4.70-6.10); White Blood Cell (WBC) Count 7.59 10x3/uL (4.8-10.8)
[2025-01-28 04:58] LABS: ALT (SGPT) 140 U/L (Less than 45); AST (SGOT) 98 U/L (11-34); Albumin 2.3 g/dL (3.1-4.5); Alkaline Phosphatase 110 U/L (40-110); Anion Gap 12 mmol/L (10-20); BUN (Urea Nitrogen) 14 mg/dL (8.4-25.7); Bilirubin, Total 0.4 mg/dL (0.3-1.2); CK (CPK) 324 U/L (30-200); Calc. Creatinine Clearance 75 mL/min (70-130); Calcium 8.0 mg/dL (7.8-10.44); Carbon Dioxide 28 mmol/L (23-31); Chloride 110 mmol/L (98-107); Globulin 3.3 g/dL (2.4-3.5); Glucose 102 mg/dL (83-110); Potassium 3.8 mmol/L (3.5-5.1); Sodium 146 mmol/L (136-145)
[2025-01-28] MEDS: Melatonin 3 MG TAB PO PRN (20:41)
[2025-01-29 03:44] LABS: #Basophils 0.04 10x3/uL (0.0-0.2); #Eosinophils 0.36 10x3/uL (0.0-0.7); #Monocytes 0.85 10x3/uL (0.11-0.59); #Neutrophils 4.37 10x3/uL (1.40-6.50); %Basophils 0.6 % (0.0-1.0); %Eosinophils 5.0 % (0.0-10.0); %Lymphocytes 21.7 % (21.0-51.0); %Monocytes 11.7 % (0.0-10.0); %Neutrophils 60.3 % (42.0-75.0); Hematocrit 29.4 % (42.0-52.0); Hemoglobin 9.1 g/dL (14.0-18.0); Mean Corpuscular Hemoglobin 31.8 pg (27.0-31.0); Mean Corpuscular Volume 102.8 fL (78.0-98.0); Platelet Count 326 10x3/uL (130-400); Red Blood Cell (RBC) Count 2.86 mill/uL (4.70-6.10); White Blood Cell (WBC) Count 7.24 10x3/uL (4.8-10.8)
[2025-01-29 04:19] LABS: ALT (SGPT) 114 U/L (Less than 45); AST (SGOT) 72 U/L (11-34); Albumin 2.4 g/dL (3.1-4.5); Alkaline Phosphatase 98 U/L (40-110); Anion Gap 11 mmol/L (10-20); BUN (Urea Nitrogen) 15 mg/dL (8.4-25.7); Bilirubin, Total 0.4 mg/dL (0.3-1.2); CK (CPK) 176 U/L (30-200); Calc. Creatinine Clearance 79 mL/min (70-130); Calcium 8.1 mg/dL (7.8-10.44); Carbon Dioxide 28 mmol/L (23-31); Chloride 109 mmol/L (98-107); Globulin 3.4 g/dL (2.4-3.5); Glucose 100 mg/dL (83-110); Potassium 3.8 mmol/L (3.5-5.1); Sodium 144 mmol/L (136-145)
[2025-01-29 13:42] VITALS: BMI 28.3
[2025-01-29] MEDS ORDERED: Sodium Bicarbonate 2.5 MEQ/5 ML SDV ONE (13:43)
[2025-01-29] MEDS ORDERED: Lidocaine 1% w/Epinephrine 1:100K 20 ML VIAL ONE (13:44)
[2025-01-29 16:14] VITALS: BP 134/67; TEMP 97.8
== END 2025-01-29 19:44 | disposition home or self-care (01) | DRG 559 ==
LOC: PCU 07:46 → OBSVTOIN 10:06
PROVIDERS: ADMIT Internal Medicine; ATTEND Hospitalist
PROC: 30233N1 Transfusion of Nonautologous Red Blood Cells into Peripheral Vein, Percutaneous Approach (ICD-10-PCS; 2025-01-23)
PROC: 3E03329 Introduction of Other Anti-infective into Peripheral Vein, Percutaneous Approach (ICD-10-PCS; principal; 2025-01-24)
PROC: 02HV33Z Insertion of Infusion Device into Superior Vena Cava, Percutaneous Approach (ICD-10-PCS; 2025-01-29)
PROC: B5181ZA Fluoroscopy of Superior Vena Cava using Low Osmolar Contrast, Guidance (ICD-10-PCS; 2025-01-29)
DX: T84.51XA Infection and inflammatory reaction due to internal right hip prosthesis, initial encounter (principal); I50.33 Acute on chronic diastolic (congestive) heart failure; J96.01 Acute respiratory failure with hypoxia; M62.82 Rhabdomyolysis; I11.0 Hypertensive heart disease with heart failure; I25.10 Atherosclerotic heart disease of native coronary artery without angina pectoris; E78.5 Hyperlipidemia, unspecified; E07.9 Disorder of thyroid, unspecified; G47.33 Obstructive sleep apnea (adult) (pediatric); N40.0 Benign prostatic hyperplasia without lower urinary tract symptoms; E03.9 Hypothyroidism, unspecified; D72.829 Elevated white blood cell count, unspecified; D64.9 Anemia, unspecified; Z95.1 Presence of aortocoronary bypass graft; Z98.890 Other specified postprocedural states; Z88.8 Allergy status to other drugs, medicaments and biological substances; Z88.5 Allergy status to narcotic agent; Z79.890 Hormone replacement therapy
CPT/HCPCS: 36415; 36430; 36573; 80048; 80053; 80202; 82274; 82550; 82607; 83735; 85025; 86850; 86900; 86901; 93306; C1751; J1642; J1650; J1940; J2185; J3373; J3375; J7030; J7050; J7120; P9016